=== PATIENT | male | born 1940 | race Caucasian/White ===

== ENCOUNTER 2022-01-28 13:21 | Emergency (ER) | payer MEDICARE, OTHER, SELFPAY ==
--- NOTE | ~2022-01-28 | XR_ITS ---
EXAMINATION: XR hand LT 2V DATE: 01/28/2022 13:44 INDICATION: Deep laceration at the fifth digit post fall TECHNIQUE: Posteroanterior and lateral views of the left hand were obtained. COMPARISON: None. FINDINGS: Bone alignment is normal. No fracture. Polyarticular osteoarthritis, moderate severity at the triscap he, first carpal metacarpal and third metacarpophalangeal joints and mild at the distal radioulnar, w rist and multiple metacarpophalangeal and interphalangeal joints. Tiny radiopaque foreign body in the soft tissues at the palmar/radial base of the second finger. No other radiopaque foreign bodies iden tified. Specifically no radiopaque foreign bodies at the fifth digit. IMPRESSION: 1. Tiny radiopaque foreign body at the palmar/radial side of the base of the left second digit which is remote from the site of the reported laceration. Correlate for history of prior penetrating trauma at this location. 2. 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 No acute osseous abnormality. Reviewed, dictated and finalized at location A. IMPRESSION: 1. Tiny radiopaque foreign body at the palmar/radial side of the base of the le ft second digit which is remote from the site of the reported laceration. Corre late for history of prior penetrating trauma at this location. 2. 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 No acute oss eous abnormality.
--- NOTE | ~2022-01-28 | CT_ITS ---
EXAMINATION: CT brain wo con DATE: 01/28/2022 15:17 INDICATION: Head injury. TECHNIQUE: Computed tomography (CT) of the head was performed without intravenous contrast. The mA wa s adjusted according to patient size. Iterative reconstruction technique was employed. The dose-lengt h product was 605.33 mGy-cm. COMPARISON: None FINDINGS: There are scattered areas of low attenuation in the cerebral white matter. There is no intr acranial hemorrhage, acute infarction, or abnormal intracranial mass lesion. The ventricles are candace l in size. There are likely changes of ocular lens replacement surgeries. There is mild mucosal thick ening in the paranasal sinuses. The mastoid air cells are normal. IMPRESSION: 1. Mild nonspecific cerebral white matter disease, which likely represents chronic small vessel ische christie disease. Reviewed, dictated and finalized at location A. IMPRESSION: 1. 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
[2022-01-28 13:22] VITALS: BP 151/113; PULSE 60; RESP 16; TEMP 37.1; O2SAT 98
--- NOTE | 2022-01-28 14:45 | ED.FALL ---
HPI - Fall General Chief Complaint: Fall Stated Complaint: fall, laceration to hand Time Seen by Provider: 01/28/22 14:20 Source: patient and RN notes reviewed Mode of arrival: ambulatory Limitations: no limitations History of Present Illness HPI Narrative: This is a 81 year old male who presents for evaluation of left hand laceration s/p fall. PAtient states he was on his porch when he tripped over a piece of wood. This caused him to fall forward and he hit his fore head. He denies LOC or headache. His family states he complained about a headache earlier. He states the only thing that hurts his left hand. He has laceration to his left hand. He denies headache, dizziness, chest pain , or lower extremity pain. He denies taking blood thinner. Related Data Home Medications Medication Instructions Recorded Confirmed simvastatin 40 mg tablet 40 mg PO DAILY 06/19/21 Allergies Allergy/AdvReac Type Severity Reaction Status Date / Time No Known Allergies Allergy Verified 01/28/22 13:26 Review of Systems Review of Systems: All systems reviewed & are unremarkable except as noted in HPI and below Constitutional: Constitutional: Denies chills, Denies fatigue and Denies fever(s) Cardiovascular: Cardiovascular: Denies chest pain Respiratory: Respiratory: Denies dyspnea Gastrointestinal: Gastrointestinal: Denies abdominal pain, Denies bloating, Denies nausea and Denies vomiting Musculoskeletal: Musculoskeletal: Denies back pain and Reports arthralgias Neurologic: Denies syncope and Denies headache(s) [facility] Past Medical History Medical History (Updated 01/28/22 @ 16:37 by Abby Scanlon MD) Essential (primary) hypertension Postherpetic trigeminal neuralgia Pure hypercholesterolemia, unspecified Surgical History Surgical History (Updated 06/19/21 @ 15:13 by Salo Barth MD) H/O arthroscopy of knee bilateral History of cataract surgery bilateral Social History Social History (Updated 01/28/22 @ 14:51 by Abby Scanlon MD) Smoking status: Former smoker Exam Const: General: no acute distress and alert Nutritional Appearance: obese Orientation/consciousness: patient oriented x3 HENMT: Head: contusion (abrasion to mid forehead) General nose exam: Normal nares present and no epistaxis Mouth: Yes Normal oral and palatal mucosa present, Yes lip normal and Yes moist mucous membranes Throat: posterior oropharynx normal Other: abrasion to nose bridge Eyes: Pupils: Equal, round and reactive pupils present EOM: EOMs intact bilaterally Neck: Neck: normal visual inspection Chest: Chest palpation & inspection: normal inspection of the chest Resp: Effort & Inspection: normal respiratory effort Auscultation: clear to auscultation bilaterally Cardio: Rate: regular rate Rhythm: regular rhythm Heart sounds: no murmurs GI: GI Palp: Yes Soft to palpation, No Tenderness to palpation present (GI), No Guarding due to palpation present (GI) and No Rigid due to palpation Auscultation: normal bowel sounds Skin: Wounds: wounds noted (left ulnar aspect 5th finger irregular, no exposed bone or tendon) Other: 5 cm wound Neuro: General: patient oriented x3, moves all extremities and CN's II-XI intact bilaterally Course Vital Signs Vital signs: Vital Signs Temperature 98.7 F 01/28/22 13:22 Pulse Rate 60 01/28/22 13:22 Respiratory Rate 16 01/28/22 13:22 Blood Pressure 151/113 H 01/28/22 13:22 Pulse Oximetry 98 01/28/22 13:22 Oxygen Delivery Room Air 01/28/22 13:22 Temperature 98.7 F 01/28/22 13:22 Pulse Rate 65 01/28/22 17:20 Respiratory Rate 18 01/28/22 17:20 Blood Pressure 191/69 H 01/28/22 17:20 Pulse Oximetry 97 01/28/22 17:20 Oxygen Delivery Room Air 01/28/22 13:22 Procedures Laceration Laceration 1: Date: 01/28/22 Time: 16:35 Site: hand (left hand) Size (cm): 5 Description: irregu
[2022-01-28] MEDS: HYDROcodone/acetaminophen (*CRX) 5-325 MG TABLET 1 TAB PO (15:06)
[2022-01-28] MEDS: ONDANSETRON HCL ODT 4 MG TABLET PO (15:06)
[2022-01-28] MEDS: TETANUS,DIPHTHERIA,AC PERTUSSIS ADULT (0.5 ML) BOOSTRIX IM (15:07)
--- NOTE | 2022-01-28 15:16 | PC.NURSE ---
Patient off unit to CT.
[2022-01-28] MEDS: LIDOCAINE HCL 1% LOCAL INJ 20 ML VIAL (15:47)
--- NOTE | 2022-01-28 16:00 | PC.NURSE ---
Dr. Scanlon at bedside to complete laceration repair of left hand.
[2022-01-28 16:19] VITALS: BP 190/75; PULSE 59; RESP 16; O2SAT 99
[2022-01-28 17:20] VITALS: BP 191/69; PULSE 65; RESP 18; O2SAT 97
== END 2022-01-28 17:21 | disposition home or self-care (01) ==
PROVIDERS: Emergency Provider General Practice; PCP Family Medicine Adolescent Medicine
DX: S61.412A Laceration without foreign body of left hand, initial encounter (principal); S09.90XA Unspecified injury of head, initial encounter; Z23 Encounter for immunization; I10 Essential (primary) hypertension; E78.00 Pure hypercholesterolemia, unspecified; Z87.891 Personal history of nicotine dependence; Z98.42 Cataract extraction status, left eye; Z98.41 Cataract extraction status, right eye; M19.042 Primary osteoarthritis, left hand; R90.82 White matter disease, unspecified; W18.09XA Striking against other object with subsequent fall, initial encounter
CPT/HCPCS: 12002; 70450; 73120; 90471; 90715; 99284; A9270

== ENCOUNTER → 2023-10-25 13:58 | Outpatient (CLI) | payer MEDICARE, OTHER, SELFPAY ==
--- NOTE | ~2023-10-25 | XR_ITS ---
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 RESULT: Lines, tubes, and devices: None. Lungs and pleura: Clear. Cardiomediastinal silhouette: Stable. Other: No acute osseous or upper abdominal finding. IMPRESSION: No acute cardiopulmonary process. Reviewed, dictated and finalized at location K.
== END ==
PROVIDERS: PCP Family Medicine Adolescent Medicine; Visit Provider Family Medicine Adolescent Medicine
DX: R60.0 Localized edema (principal)
CPT/HCPCS: 71046

== ENCOUNTER 2023-11-29 07:16 | Inpatient (IN) | payer MEDICARE, OTHER, SELFPAY ==
[2023-11-29] VITALS (24 sets, daily range): BP systolic 118–154; BP diastolic 51–99; PULSE 60–95; RESP 16–23; TEMP 36.6–36.9; O2SAT 97–100; BMI 44.1
--- NOTE | ~2023-11-29 | CT_ITS ---
EXAMINATION: CT chest abdomen pelvis w con DATE: 11/29/2023 08:19 INDICATION: Chest pressure. Shortness of breath. Trauma. TECHNIQUE: Computed tomography (CT) of the chest, abdomen, and pelvis was performed with 100 mL Omnip aque 350 intravenous contrast. Automated exposure control and iterative reconstruction technique were employed. The dose-length product was 1952.01 mGy-cm. COMPARISON: None FINDINGS: CHEST CT: The lungs demonstrate mild atelectasis. Calcified pulmonary nodules and calcified hilar lymph nodes a re consistent with old granulomatous disease. No pleural effusion. The heart size is normal. There ar e coronary artery calcifications. No pericardial effusion. There is mild chronic anterior wedging of multiple vertebral bodies. There is mild thoracic spondylosis. ABDOMEN/PELVIS CT: The liver demonstrates surface nodularity, consistent with cirrhosis. The gallbladder is normal in si ze. Calcifications in the spleen are consistent with old granulomatous disease. The pancreas and adre nal glands are normal. There is cortical thinning of the kidneys. There is a large volume of ascites. Body wall edema is noted. The prostate is mildly enlarged. There is diverticulosis of the colon with out evidence of diverticulitis. There are no dilated loops of bowel. The appendix is normal. Paraesop hageal varices are noted. There is calcified atherosclerosis of the aorta and many of the other arter ies. There is mild periportal and left inguinal lymphadenopathy, likely reactive. There are chronic b ilateral L5 pars defects. There is mild lumbar spondylosis. IMPRESSION: 1. Cirrhosis of the liver with portal venous hypertension. 2. Large volume of ascites. 3. Mild periportal and left inguinal lymphadenopathy, likely reactive. Reviewed, dictated and finalized at location E.
--- NOTE | ~2023-11-29 | US_ITS ---
EXAMINATION: US paracentesis abd w/image DATE: 11/30/2023 10:39 INDICATION: Ascites. TECHNIQUE: The procedure and its risks and benefits were discussed with the patient. Potential risks discussed included bleeding and infection. The skin was prepped and draped in sterile fashion. 1% lid ocaine was used for local anesthesia. Under ultrasound guidance, a 5 Fr catheter with trochar was adv anced into the ascites in the left lower quadrant. Fluid was aspirated into vacuum bottles. The kyle ter was removed, and a dressing was applied. There were no immediate complications. FINDINGS: Ultrasound images demonstrate ascites and the catheter within the fluid. IMPRESSION: 1. Successful ultrasound-guided paracentesis yielding 5000 mL of light yellow fluid. Reviewed, dictated and finalized at location A.
--- NOTE | ~2023-11-29 | XR_ITS ---
EXAMINATION: XR chest 2V DATE: 11/29/2023 07:55 INDICATION: Congestive heart failure. TECHNIQUE: Frontal and lateral views of the chest were obtained. COMPARISON: Chest 2 views 10/25/2023 FINDINGS: There is no pneumonia, pleural effusion, or pneumothorax. The heart size is normal. IMPRESSION: 1. No acute cardiopulmonary disease. Reviewed, dictated and finalized at location E.
--- NOTE | 2023-11-29 07:19 | ECG_ITS ---
Test Date: 2023-11-29 07:28:32 Measurements Intervals [place] Rate: 65 P: 51 WA: 184 QRS: -31 QRSD: 103 T: -10 QT: 402 QTc: 420 Interpretive Statements SINUS RHYTHM WITH MARKED SINUS ARRHYTHMIA MARKED LEFT AXIS DEVIATION [QRS AXIS < -30] LOW QRS VOLTAGE IN PRECORDIAL LEADS [QRS DEFLECTION < 1.0 mV IN CHEST LEADS] NONSPECIFIC T-WAVE ABNORMALITY ABNORMAL ECG No previous ECG available for comparison Electronically Signed On 11-29-2023 15:17:57 CDT by Link Espinoza M.D.
--- NOTE | 2023-11-29 07:34 | ED.CHESTPAIN ---
HPI - Chest Pain General Chief Complaint: Chest Pain Stated Complaint: chest pain Time Seen by Provider: 11/29/23 07:19 History of Present Illness HPI narrative: 83-year-old male with history of type 2 diabetes, high cholesterol, hypertension, morbid obesity, coronary disease with stent present to the emergency department for evaluation of lower extremity swelling and worsening shortness of breath. Patient states symptoms have been ongoing for approximately the last 2 weeks. Patient has no prior history of congestive heart failure and states he is not take a water pill. Patient states he has had some intermittent chest pain with this but denies any current chest pain. Patient states he did have a fall a few days ago did injure his right side. Patient is also reporting that he has been having some dark stool. Patient denies any prior history of GI bleed. Patient has been taking Pepto-Bismol. Related Data Home Medications Medication Instructions Recorded Confirmed aspirin 81 mg tablet,delayed 81 mg PO DAILY 04/30/22 11/29/23 release (Adult Low Dose Aspirin) Allergies Allergy/AdvReac Type Severity Reaction Status Date / Time peanut AdvReac Gastrointestinal Verified 11/29/23 09:55 Upset Review of Systems Review of Systems: All systems reviewed & are unremarkable except as noted in HPI and below PMFSH Past Medical History Medical History (Updated 11/29/23 @ 16:42 by Jareth Banda MD) Atherosclerosis of aorta (12/2010) Coronary artery disease Essential (primary) hypertension Pure hypercholesterolemia, unspecified Type 2 diabetes mellitus without complications Surgical History Surgical History (Updated 11/29/23 @ 13:08 by Niecy Pacheco PA-C) History of arthroscopy of both knees History of bilateral cataract extraction History of cardiac catheterization History of coronary artery stent placement History of total left knee replacement (2010) History of total right knee replacement (2011) Family History Family History (Updated 11/29/23 @ 13:09 by Niecy Pacheco PA-C) Mother Bone cancer Cerebrovascular accident Heart disease Hypertension Sibling Heart disease Social History Social History (Updated 11/29/23 @ 13:10 by Niecy Pacheco PA-C) Social History: Surrogate medical decision maker: Disha Banda, spouse. Code status: Full code. Smoking packs per day: 1 Smoking cigarettes per day: 20.0 Smoking status: Former smoker Tobacco type: cigarettes Smoking end date: 01/01/85 Alcohol intake: never Substance use: never Substance use type: does not use Do You Feel Safe in your Home?: Yes Lack of Transportation: No Lack of Food: Never True Current Housing: I Have Housing Concerned About Future Housing: No Difficulty Paying Gas/Electric Bills: No Difficulty Paying for Meds: No Currently Unemployed: No Education: High School Diploma/GED Difficulty w/ Childcare or Family Care: No Spiritual care concerns: No Exam Narrative: APPEARANCE: Dyspneic appearing HEAD: normocephalic, atraumatic. EYES: PERRLA/EOMI, conjunctivae clear. NOSE: Normal no drainage EARS:TMS clear with good light reflex. THROAT: Pharynx clear, no exudate. NECK: Supple. No adenopathy, no masses. RESPIRATORY: Airway patent, respirations nonlabored. Clear to auscultation bilaterally, no rales, rhonchi, wheezing. CARDIOVASCULAR: Regular rate and rhythm without murmurs rubs or gallops. ABDOMINAL: Soft, nontender, nondistended, normal bowel sounds MUSCULOSKELETAL: Moves all extremities. Lower extremity edema, +3 pitting Rectal exam: Hemoccult negative on digital rectal exam NEURO: Alert. Cranial nerves II through XII intact. Good gait. Good coordination SKIN: Warm, dry. Normal Color Course Vital Signs Vital signs: Vital Signs Temperature 98.1 F 11/29/23 07:19 Pulse Rate 75 11/29/23 07:19 Respiratory Rate 18 11/29/23 07:19 Blood Pressure 118/99 H
[2023-11-29 07:40] LABS: Basophils Absolute Auto 0.1 K/mm3 (0.0-0.1); Basophils Percent Auto 0.8 % (0.2-1.2); Eosinophils Absolute Auto 0.1 K/mm3 (0-0.3); Eosinophils Percent Auto 2.3 % (0-4.4); Hematocrit 38.3 % (42.0-52.0); Hemoglobin 12.3 g/dL (14.0-18.0); Immature Granulocyte Absolute 0.03 K/mm3 (0.00-0.031); Immature Granulocyte Percent A 0.5 % (0-0.5); Lymphocytes Absolute Auto 1.96 K/mm3 (0.9-3.2); Lymphocytes Percent Auto 32.6 % (18.3-44.2); Mean Corpuscular HGB Conc 32.1 g/dl (32-36); Mean Corpuscular Hemoglobin 33.3 pg (26-34); Mean Corpuscular Volume 103.8 fl (80-100); Mean Platelet Volume 9.8 fl (7.4-10.4); Monocytes Absolute Auto 0.6 K/mm3 (0.1-0.6); Monocytes Percent Auto 9.5 % (2.6-8.5); Neutrophils Absolute Auto 3.3 K/mm3 (1.3-6.7); Neutrophils Percent Auto 54.3 % (45.5-73.1); Platelet Count Result 172 k/mm3 (150-375); Red Blood Count 3.69 M/mm3 (4.6-6.20)
[2023-11-29 07:49] LABS: Alanine Aminotransferase 30 U/L (6-50); Albumin Level 2.7 g/dL (3.5-5.1); Alkaline Phosphatase 123 U/L (38-126); Anion Gap 4 mmol/L (4-12); Aspartate Amino Transferase 37 U/L (17-59); Bilirubin,Total 0.8 mg/dL (0.2-1.3); Blood Urea Nitrogen 14 mg/dL (9-20); Calcium 7.5 mg/dL (8.4-10.2); Carbon Dioxide 23 mmol/L (22-30); Chloride 109 mmol/L (98-107); Estimated CRCL calculation 78 ml/min; Estimated Glomerular Filt Rate > 60; Glucose 164 mg/dL (65-110); INR 1.1; Potassium 3.7 mmol/L (3.4-5.0); Prothrombin Time 14.4 Seconds (11.1-14.7); Sodium 136 mmol/L (137-145)
[2023-11-29 07:50] LABS: Partial Thromboplastin Time 28.4 Seconds (22.3-36.8)
[2023-11-29 08:01] LABS: NT Pro B Type Natriuretic Pept 1080 pg/mL (19.9-100); Troponin I 0.027 ng/mL (0.000-0.034)
[2023-11-29] MEDS: FUROSEMIDE INJ 40 MG/4 ML VIAL IV PUSH ×2 (08:24→16:46)
[2023-11-29 08:48] LABS: Influenza A QL RT-PCR Negative (Negative); Influenza B QL RT-PCR Negative (Negative); RSV RNA, RT-PCR Negative (Negative); SARS-CoV-2 RNA PCR Negative (Negative)
--- NOTE | 2023-11-29 09:25 | ADMGEN ---
This patient, Everardo Banda, was admitted to Medical Room 250-01. Patient/family oriented to hospital policies and general routines including ID bracelet, bed and alarms, visiting hours, pain management, procedures, bathroom and other care routines, personal items, smoking policy, room service/diet, and visiting hours. Information on how to activate the Rapid Response Team has been discussed. Patient/Family are encouraged to report perceived risks to care and to ask questions if they do not understand what they are told or what they should do.
--- NOTE | 2023-11-29 13:04 | ECHO_ITS ---
Patient Info Name: Everardo Banda Age: 83 years : 1940 Gender: Male Ht: 69 in Wt: 299 lbs BSA: 2.64 m2 HR: 67 bpm BP: 154 / 65 mmHg Heart Rhythm: Sinus Rhythm Technical Quality: Fair Exam Date: 11/29/2023 3:56 PM Exam Location: Echo Lab Patient Status: Outpatient Admit Date: 11/29/2023 Staff Ordering Physician: Niecy Pacheco PA-C Packer: Tavares Olsen RDCS Attending Provider: Sandra Braswell MD Referring Physician: Tara MYLES; Exam Type: CA echo doppler color flow Study Info Indications J81.0 - Acute pulmonary edema I10 - Essential (primary) hypertension I25.110 - Atherosclerotic heart disease of [place] coronary artery with unstable angina pectoris Complete two-dimensional, color flow and Doppler transthoracic echocardiogram is performed. Summary 1. Left ventricular chamber dimension is normal. 2. Left ventricular systolic function is normal, estimated at 50-55%. 3. There is mildly increased left ventricular wall thickness. 4. The left ventricular diastolic function is grade I diastolic dysfunction. 5. Right ventricular systolic function is normal. 6. There is mild tricuspid valve regurgitation. 7. Normal inferior vena cava with >50% collapse upon inspiration consistent with normal right atrial pressure, 3 mmHg. Left Ventricle Left ventricular chamber dimension is normal. Left ventricular systolic function is normal, estimated at 50-55%. There is mildly increased left ventricular wall thickness. The left ventricular diastolic function is grade I diastolic dysfunction. Right Ventricle Right ventricular chamber dimension is normal. Right ventricular systolic function is normal. Left Atria Left atrial chamber dimension is normal. Right Atria Right atrial chamber dimension is normal. Atrial Septum Intact interatrial septum visualized by color flow imaging. Aortic Valve The aortic valve is probable trileaflet. There is no aortic valve stenosis. There is no aortic valve regurgitation. There is moderate aortic valve calcification. Pulmonic Valve The pulmonic valve is not well visualized. There is trace pulmonic regurgitation. Mitral Valve There is trace mitral valve regurgitation. The mitral valve annulus is moderately calcified. Tricuspid Valve There is mild tricuspid valve regurgitation. Pericardium/Pleural The pericardium appears epicardial fat pad. There is no pericardial effusion. Inferior Vena Cava Normal inferior vena cava with >50% collapse upon inspiration consistent with normal right atrial pressure, 3 mmHg. Aorta The aortic root size at the sinus of Valsalva is normal. Left Ventricular Outflow Tract Name Value Normal LVOT 2D LVOT Diameter 2.0 cm LVOT Doppler LVOT Peak Gradient 4 mmHg LVOT Mean Gradient 2 mmHg LVOT VTI 21 cm LVOT VTI/AV VTI Ratio 0.6 LVOT Stroke Volume 68 ml LVOT CO 3.6 l/min LVOT CI 1.4 l/min/m2 Pulmonic Valve Name
--- NOTE | 2023-11-29 13:05 | PM.IMHP ---
H&P: HPI History of Present Illness Date/Time: 11/29/23 13:05 Chief Complaint: Shortness of breath and swelling. Narrative: This is a very pleasant 83-year-old male with coronary artery disease and history of stents in 1995, hypertension, hyperlipidemia, and type 2 diabetes mellitus who presented to the emergency department for evaluation of swelling and shortness of breath. The patient provides the following history. Over the course of the last month he has developed rapid swelling in his legs and abdomen. Several days ago he had a fall as he got tripped up on his legs, in part due to the swelling, and he landed on his right side. He has had pain in the right rib since that time, worse with movement and inspiration. Family members encouraged him to come in today for evaluation as he was complaining of intermittent tightness in the low chest area. He does have some shortness of breath with exertion. He has not had exertional chest pain or pleuritic pain. He denies syncope and near syncope. Appetite has been okay. No nausea, vomiting, diarrhea, or constipation. Stool has been ?black as coal? but he has been taking Pepto-Bismol. Family members suspect he has sleep apnea as he snores heavily and occasionally sounds as though he stops breathing. The patient has known history of cardiac, renal, or liver disease. Of note he has had 2 episodes of angioedema around the face, lips, and neck in the past month or so. He has been on benazepril for many years and has never had similar episodes. In the ED: He was afebrile on arrival with stable vital signs. Labs were significant for a he hemoglobin of 12.3, MCV 103.8, INR 1.1, glucose 164, troponin 0.027, proBNP 1080, total protein 6.0, albumin 2.7. 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 No acute cardiopulmonary disease noted on chest x-ray. He received furosemide 40 mg IV x1 he is being admitted in this setting for further treatment and evaluation. With further questioning, he has known history of liver disease. Review of Systems Review of Systems: 12 systems were reviewed and are negative except for as per HPI. [facility] Past Medical History Medical History Atherosclerosis of aorta (12/2010) Coronary artery disease Essential (primary) hypertension Pure hypercholesterolemia, unspecified Type 2 diabetes mellitus without complications Surgical History Surgical History History of arthroscopy of both knees History of bilateral cataract extraction History of cardiac catheterization History of coronary artery stent placement History of total left knee replacement (2010) History of total right knee replacement (2011) Family History Family History Mother Bone cancer Cerebrovascular accident Heart disease Hypertension Sibling Heart disease Social History Social History Social History: Surrogate medical decision maker: Disha Banda, spouse. Code status: Full code. Smoking packs per day: 1 Smoking cigarettes per day: 20.0 Smoking status: Former smoker Tobacco type: cigarettes Smoking end date: 06/14/84 Alcohol intake: never Substance use: never Substance use type: does not use Do You Feel Safe in your Home?: Yes Lack of Transportation: No Lack of Food: Never True Current Housing: I Have Housing Concerned About Future Housing: No Difficulty Paying Gas/Electric Bills: No Difficulty Paying for Meds: No Currently Unemployed: No Education: High School Diploma/GED Difficulty w/ Childcare or Family Care: No Spiritual care concerns: No Meds Home Medications and Allergies Home Medications Medication Instructions Rec
[2023-11-29 13:37] LABS: Magnesium 1.7 mg/dL (1.6-2.3)
[2023-11-29 13:45] LABS: Immature Reticulocyte Fraction 9.9 % (3.0-15.9); Reticulocyte Hemoglobin Conten 36.5 pg (28.2-36.6); Reticulocyte Percent 1.47 % (0.7-4.3); Reticulocytes Absolute 0.06 10^6/uL (0.02-0.10)
[2023-11-29 14:06] LABS: Troponin I 0.031 ng/mL (0.000-0.034)
[2023-11-29 14:14] LABS: Iron 83 ug/dL (49-181)
[2023-11-29 14:26] LABS: Percent Iron Saturation 41 % (20-50)
[2023-11-29 14:44] LABS: Folic Acid 7.1 ng/mL (2.76->20)
[2023-11-29 15:27] LABS: Free T4 Free Thyroxine Reflex 1.07 ng/dL (0.78-2.19)
[2023-11-29 15:33] LABS: Hepatitis B Surface Antigen Negative (Negative)
[2023-11-29 15:39] LABS: HAV RESULT Negative (Negative); Hepatitis B Core IgM Result Negative (Negative)
[2023-11-29 15:50] LABS: Hepatitis C Virus Antibody Negative (Negative)
[2023-11-29 15:57] LABS: Hemoglobin A1C 5.3 % (<5.7)
[2023-11-29] MEDS: ACETAMINOPHEN 325 MG TABLET 650 MG PO (16:46)
[2023-11-29] MEDS: METOPROLOL TARTRATE 50 MG TAB PO (16:48)
[2023-11-29] MEDS: POTASSIUM CHLORIDE 20 MEQ ER TABLET PO (16:53)
[2023-11-29 16:56] LABS: Glucose Point of Care 93 mg/dl (65-105)
--- NOTE | 2023-11-29 17:30 | WPDGICN ---
Assessment and Plan Assessment and plan (1) Cirrhosis of liver with ascites: Code(s): K74.60 - Unspecified cirrhosis of liver; R18.8 - Other ascites Status: Acute Assessment and Plan: new diagnosis with significant ascites will get paracentesis, also start diuretics, 2g na diet will complete work up, based on risk factors ? MASH at some point will need EGD to assess for portal htn (2) CHF (congestive heart failure): Code(s): I50.9 - Heart failure, unspecified Status: Acute Assessment and Plan: on treatment. echo pending (3) Type 2 diabetes mellitus without complications: Code(s): E11.9 - Type 2 diabetes mellitus without complications Status: Acute (4) Coronary artery disease: Code(s): I25.10 - Atherosclerotic heart disease of [place] coronary artery without angina pectoris Status: Acute (5) Edema: Code(s): R60.9 - Edema, unspecified Status: Acute (6) Morbid (severe) obesity due to excess calories: Code(s): E66.01 - Morbid (severe) obesity due to excess calories Status: Acute GI Consult Note Consult date/time: 11/29/23 17:30 Reason for consult: cirrhosis, ascites HPI: Everardo Banda is a 83 year old male with history of coronary artery disease and history of stents in 1995, hypertension, hyperlipidemia, and type 2 diabetes mellitus, obesity with BMI 44 who presented to the emergency department for evaluation of chest pressure and shortness of breath. Patient states he has had some intermittent chest pain with this but denies any current chest pain, also noted more leg edema and increase of abdominal girth, also he had a fall a few days ago did injure his right side. Denies history of liver disease, no alcohol abuse. ER evaluation hemoglobin of 12.3, MCV 103.8, INR 1.1, glucose 164, troponin 0.027, proBNP 1080, total protein 6.0, albumin 2.7. 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 He received iv lasix, now getting 2d-echo. Never had paracentesis. Review of Systems Constitutional: Constitutional: Denies chills Eyes: Eyes: Denies blurry vision ENT: Reports Normal hearing present Cardiovascular: Cardiovascular: Reports leg edema Respiratory: Respiratory: Reports dyspnea on exertion Gastrointestinal: Gastrointestinal: Denies nausea Genitourinary: Genitourinary: Reports flank pain Musculoskeletal: Musculoskeletal: Denies neck pain Integumentary/Breasts: Skin/Breast: Denies rash Neurologic: Denies confusion Psychiatric: Psychiatric: Denies behavioral changes [facility] Past Medical History Medical History (Updated 11/29/23 @ 16:42 by Jareth Banda MD) Atherosclerosis of aorta (12/2010) Coronary artery disease Essential (primary) hypertension Pure hypercholesterolemia, unspecified Type 2 diabetes mellitus without complications Surgical History Surgical History (Updated 11/29/23 @ 13:08 by Niecy Pacheco PA-C) History of arthroscopy of both knees History of bilateral cataract extraction History of cardiac catheterization History of coronary artery stent placement History of total left knee replacement (2010) History of total right knee replacement (2011) Family History Family History (Updated 11/29/23 @ 13:09 by Niecy Pacheco PA-C) Mother Bone cancer Cerebrovascular accident Heart disease Hypertension Sibling Heart disease Social History Social History (Updated 11/29/23 @ 13:10 by Niecy Pacheco PA-C) Social History: Surrogate medical decision maker: Disha Banda, spouse. Code status: Full code. Smoking packs per day: 1 Smoking cigarettes per day: 20.0 Smoking status: Former smoker Tobacco type: cigarettes Smoking end date: 06/14/84 Alcohol intake: never Substance use: never Substance use type: does not use Do You Feel Safe in your Home?:
[2023-11-29] MEDS: HYDROcodone/acetaminophen (*CRX) 5-325 MG TABLET 1 TAB PO (20:40)
[2023-11-29 21:13] LABS: Glucose Point of Care 148 mg/dl (65-105)
[2023-11-30] VITALS (13 sets, daily range): BP systolic 107–153; BP diastolic 49–60; PULSE 59–89; RESP 16–20; TEMP 36.4–36.8; O2SAT 95–100
[2023-11-30 06:02] LABS: Hemoglobin 11.6 g/dL (14.0-18.0); Mean Corpuscular HGB Conc 32.2 g/dl (32-36); Mean Corpuscular Volume 102.3 fl (80-100); Mean Platelet Volume 9.9 fl (7.4-10.4); Platelet Count Result 186 k/mm3 (150-375); Red Blood Count 3.52 M/mm3 (4.6-6.20); Red Cell Distribution Width 13.7 % (11.5-14.5); White Blood Count 5.9 K/mm3 (4.5-10.0)
[2023-11-30 06:23] LABS: Alanine Aminotransferase 28 U/L (6-50); Albumin Level 2.6 g/dL (3.5-5.1); Alkaline Phosphatase 115 U/L (38-126); Anion Gap 3 mmol/L (4-12); Aspartate Amino Transferase 34 U/L (17-59); Bilirubin,Total 0.9 mg/dL (0.2-1.3); Blood Urea Nitrogen 12 mg/dL (9-20); Calcium 7.5 mg/dL (8.4-10.2); Carbon Dioxide 26 mmol/L (22-30); Chloride 109 mmol/L (98-107); Estimated CRCL calculation 76 ml/min; Estimated Glomerular Filt Rate > 60; Glucose 77 mg/dL (65-110); Potassium 3.5 mmol/L (3.4-5.0); Sodium 138 mmol/L (137-145)
[2023-11-30 06:59] LABS: Total Triiodothyronine (T3) 1.08 NG/ML (0.97-1.69)
[2023-11-30 07:18] LABS: Hepatitis B Surface Antigen Negative (Negative)
[2023-11-30 07:24] LABS: HAV RESULT Negative (Negative); Hepatitis B Core IgM Result Negative (Negative)
[2023-11-30 07:35] LABS: Hepatitis C Virus Antibody Negative (Negative)
[2023-11-30 08:05] LABS: Glucose Point of Care 82 mg/dl (65-105)
[2023-11-30 11:01] LABS: Appearance Peritoneal Fluid Hazy (Clear); Color Peritoneal Fluid Yellow (Colorless); Source Peritoneal Fluid Peritoneal Fluid
[2023-11-30] MEDS: ASPIRIN 81 MG CHEWABLE TABLET PO (11:15)
[2023-11-30] MEDS: METOPROLOL TARTRATE 50 MG TAB PO ×2 (11:15→17:55)
[2023-11-30] MEDS: FUROSEMIDE INJ 40 MG/4 ML VIAL IV PUSH ×2 (11:16→17:56)
[2023-11-30] MEDS: SPIRONOLACTONE 50 MG TABLET 100 MG PO (11:16)
[2023-11-30] MEDS: MONTELUKAST SODIUM 10 MG TABLET PO (11:16)
[2023-11-30] MEDS: SIMVASTATIN 20 MG TABLET 40 MG PO (11:16)
[2023-11-30 11:18] LABS: Lymphocytes Peritoneal Fluid 86 %; Nucleated Cells Peritoneal Flu 178 /uL (0-500)
[2023-11-30 11:21] LABS: RBC Peritoneal Fluid < 2000 /uL (0-10000)
[2023-11-30 11:22] LABS: Mesothelial Cells Peritoneal Fluid 1 %; Monocytes Peritoneal Fluid 13 %
[2023-11-30 12:18] LABS: Glucose Point of Care 87 mg/dl (65-105)
--- NOTE | 2023-11-30 14:06 | P.PNIM_ITS ---
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 (2) Anasarca: Code(s): R60.1 - Generalized edema Status: Acute Assessment and Plan: * Due to cirrhosis of liver (3) Essential (primary) hypertension: Code(s): I10 - Essential (primary) hypertension Status: Acute Assessment and Plan: * blood pressure ranging 127/53 to 153/60 * continue lisinopril and metoprolol (4) Pure hypercholesterolemia, unspecified: Code(s): E78.00 - Pure hypercholesterolemia, unspecified Status: Acute Assessment and Plan: * continue aspirin and simvastatin (5) Type 2 diabetes mellitus without complications: Code(s): E11.9 - Type 2 diabetes mellitus without complications Status: Acute Assessment and Plan: * blood sugars ranging 82-140 * hemoglobin A1c 5.3 on 11/29/2023 * Accu-Cheks AC and HS * switched patient to low-dose dose sliding scale insulin ordered * diabetic diet * hypoglycemic protocol in place Time Spent With Patient Time with patient: Greater than 35 minutes Subjective Date/time seen: 11/30/23 14:06 Interval history: This is an 83-year-old male who presented to the hospital on 11/28 with co mplaints of shortness of breath swelling. Workup in hospital included chest x- ray which was negative. Chest/abdomen/pelvis CT shows cirrhosis of the liver with portal any venous hypertension, large volume of ascites, mild periportal and left inguinal lymphadenopathy, likely reactive. Patient had paracentesis today with 5 L fluid removal. Initial labs show a normal white blood cell count of 6.0, hemoglobin 12.3, INR 1.1, sodium 136, BNP 1080, albumin 2.7, vitamin B12 190. hepatitis panel was negative. Respiratory panel was negative for influenza a, B, RSV, COVID. Peritoneal fluid was sent for culture and g stain. echo was also obtained and shown LV systolic function as normal with an estimated EF of 50-55%, grade 1 diastolic dysfunction. GI was consulted and continues workup. On examination today patient is alert and oriented x3, lying in the bed. patient denies any fever, chills, nausea, vomiting, diarrhea, abdominal pain, chest pain, or shortness of breath. patient endorses right rib pain from a fall and edema to lower extremities. Labs today show a Hgb 11.6, otherwise unremarkable. We will continue diuretics. Review of Systems Review of Systems: All systems reviewed & are unremarkable except as noted in HPI and below Constitutional: Constitutional: Reports as per HPI and Reports no additional constitutional complaints Eyes: Eyes: Reports as per HPI and Reports no ad
--- NOTE | 2023-11-30 14:06 | PM.IMPN ---
Progress Note: A&P Assessment and Plan (1) Cirrhosis of liver with ascites: Code(s): K74.60 - Unspecified cirrhosis of liver; R18.8 - Other ascites Status: Acute Assessment and Plan: CT of the abdomen/ pelvis/chest revealed cirrhosis of the liver with portal venous hypertension, large volume of ascites, mild periportal and left inguinal lymphadenopathy likely reactive patient has paracentesis ultrasound with 5 L fluid removal ascites fluid sent for culture and lab studies GI consulted and following with workup for [facility] patient will need EGD at some point for his portal vein hypertension continue diuretics per GI recommendation continue low-sodium diet echo showing normal LV systolic function with an estimated EF of 50-55%, grade 1 diastolic dysfunction total bili and liver enzymes within normal limits, albumin 2.6 hepatitis panel was negative patient has 2-3+ pitting edema to bilateral lower extremities, anasarca present, will need continued diuresis. (2) Anasarca: Code(s): R60.1 - Generalized edema Status: Acute Assessment and Plan: Due to cirrhosis of liver (3) Essential (primary) hypertension: Code(s): I10 - Essential (primary) hypertension Status: Acute Assessment and Plan: blood pressure ranging 127/53 to 153/60 continue lisinopril and metoprolol (4) Pure hypercholesterolemia, unspecified: Code(s): E78.00 - Pure hypercholesterolemia, unspecified Status: Acute Assessment and Plan: continue aspirin and simvastatin (5) Type 2 diabetes mellitus without complications: Code(s): E11.9 - Type 2 diabetes mellitus without complications Status: Acute Assessment and Plan: blood sugars ranging 82-140 hemoglobin A1c 5.3 on 11/29/2023 Accu-Cheks AC and HS switched patient to low-dose dose sliding scale insulin ordered diabetic diet hypoglycemic protocol in place Time Spent With Patient Time with patient: Greater than 35 minutes Subjective Date/time seen: 11/30/23 14:06 Interval history: This is an 83-year-old male who presented to the hospital on 11/28 with complaints of shortness of breath swelling. Workup in hospital included chest x-ray which was negative. Chest/abdomen/pelvis CT shows cirrhosis of the liver with portal any venous hypertension, large volume of ascites, mild periportal and left inguinal lymphadenopathy, likely reactive. Patient had paracentesis today with 5 L fluid removal. Initial labs show a normal white blood cell count of 6.0, hemoglobin 12.3, INR 1.1, sodium 136, BNP 1080, albumin 2.7, vitamin B12 190. hepatitis panel was negative. Respiratory panel was negative for influenza a, B, RSV, COVID. Peritoneal fluid was sent for culture and g stain. echo was also obtained and shown LV systolic function as normal with an estimated EF of 50-55%, grade 1 diastolic dysfunction. GI was consulted and continues workup. On examination today patient is alert and oriented x3, lying in the bed. patient denies any fever, chills, nausea, vomiting, diarrhea, abdominal pain, chest pain, or shortness of breath. patient endorses right rib pain from a fall and edema to lower extremities. Labs today show a Hgb 11.6, otherwise unremarkable. We will continue diuretics. Review of Systems Review of Systems: All systems reviewed & are unremarkable except as noted in HPI and below Constitutional: Constitutional: Reports as per HPI and Reports no additional constitutional complaints Eyes: Eyes: Reports as per HPI and Reports no additional eye complaints ENT: Reports system reviewed and no additional complaints, except as documented and Reports as per HPI Cardiovascular: Cardiovascular: Reports as per HPI and Reports no additional cardiovascular complaints Respiratory: Respiratory: Reports as per HPI and Reports no additional respiratory complaints Gastrointestinal: Gastrointestinal: Reports as
[2023-11-30 16:46] LABS: Glucose Point of Care 100 mg/dl (65-105)
--- NOTE | 2023-11-30 17:33 | WPDGIPROGNO ---
Progress Note: A&P Assessment and Plan (1) Cirrhosis of liver with ascites: Code(s): K74.60 - Unspecified cirrhosis of liver; R18.8 - Other ascites Status: Acute Assessment and Plan: work up in progress ? MASH hepatitis negative better after 5 L fluid removed no SBP 2g na diet, nutrition support and will need follow-up office after discharge (2) Anasarca: Code(s): R60.1 - Generalized edema Status: Acute (3) CHF (congestive heart failure): Code(s): I50.9 - Heart failure, unspecified Status: Acute (4) Edema: Code(s): R60.9 - Edema, unspecified Status: Acute (5) Type 2 diabetes mellitus without complications: Code(s): E11.9 - Type 2 diabetes mellitus without complications Status: Acute (6) Morbid (severe) obesity due to excess calories: Code(s): E66.01 - Morbid (severe) obesity due to excess calories Status: Acute Subjective Date/time seen: 11/30/23 17:33 Interval history: feeling better after 5L ascitic fluid removed Review of Systems Review of Systems: All systems reviewed & are unremarkable except as noted in HPI and below Exam Const: General: comfortable Other: obese HENMT: Face/Nose/Sinus: Normal nares present Eyes: General: appearance normal, both eyes and all related structures Neck: Neck: supple Resp: Effort & Inspection: normal respiratory effort Cardio: Rate: regular rate GI: Inspection: distended GI Palp: Yes Soft to palpation Auscultation: normal bowel sounds Other: + fluid wave, tender towards right side (h/o fall) Skin: General skin exam: normal color Neuro: Speech: normal speech Motor exam (neuro): 5/5 motor strength present throughout Extrem: General: edema (2 + edema both legs) Objective Data Vital Signs Vital Signs: Vital Signs - 24 hr 11/29/23 19:42 11/29/23 20:00 11/29/23 20:00 Temperature 97.8 F Pulse Rate 63 63 62 Respiratory Rate 20 20 Blood Pressure 146/51 H Pulse Oximetry 97 97 Oxygen Delivery Room Air 11/30/23 00:00 11/30/23 02:45 11/30/23 04:00 Temperature Pulse Rate 65 89 Respiratory Rate Blood Pressure Pulse Oximetry 97 Oxygen Delivery 11/30/23 04:41 11/30/23 11:15 11/30/23 11:17 Temperature 97.6 F Pulse Rate 81 65 65 Respiratory Rate 20 16 Blood Pressure 136/52 L 153/60 H Pulse Oximetry 95 100 Oxygen Delivery 11/30/23 08:00 11/30/23 12:00 11/30/23 11:15 Temperature Pulse Rate 63 84 Respiratory Rate Blood Pressure Pulse Oximetry Oxygen Delivery Room Air 11/30/23 14:00 11/30/23 16:00 Temperature 98.2 F Pulse Rate 62 63 Respiratory Rate 16 Blood Pressure 107/54 L Pulse Oximetry 100 Oxygen Delivery Intake/Output Intake/Output: Intake & Output 11/27/23 11/28/23 11/29/23 11/30/23 23:59 23:59 23:59 23:59 Intake Total 630 530 Output Total 800 6100 Balance -170 -8029 Meds/Results Medications: Active Medications Generic Name Dose Route Start Last Admin Trade Name Freq PRN Reason Stop Dose Admin Aspirin 81 mg 11/30/23 08:00 11/30/23 11:15 Aspirin 81 Mg Chewable Tablet PO 81 mg DAILY@0800 MITZY Administration Dextrose 12.5 gm 11/29/23 13:13 Dextrose 50% 25 Gm/50 Ml Syringe IV PUSH PRN PRN Hypoglycemia Protocol Furosemide 40 mg 11/29/23 17:00 11/30/23 11:16 Furosemide Inj 40 Mg/4 Ml Vial IV PUSH 40 mg BID MITZY Administration Glucagon 1 mg 11/29/23 13:13 Glucagon For Inj 1 Mg Vial IM PRN PRN Hypoglycemia Protocol Glucose 15 gm 11/29/23 13:13 Glucose Oral Gel 15 Gm Of Glucse In 37.5 Gm Tube PO PRN PRN Hypoglycemia Protocol Dextrose 1,000 mls @ 100 mls/hr 11/29/23 13:13 Dextrose 5% 1,000 Ml IVPB PRN PRN Hypoglycemia Protocol Insulin Aspart 2 - 5 units 11/30/23 17:00 Insulin Aspart (*Bkc) 100 Units/Ml SUB-Q [facility] Protocol Insu
[2023-11-30 20:36] LABS: Glucose Point of Care 110 mg/dl (65-105)
[2023-12-01] VITALS (11 sets, daily range): BP systolic 133–144; BP diastolic 50–78; PULSE 58–100; RESP 18–20; TEMP 35.9–36.6; O2SAT 96–98
[2023-12-01 08:21] LABS: Glucose Point of Care 90 mg/dl (65-105)
[2023-12-01] MEDS: MONTELUKAST SODIUM 10 MG TABLET PO (09:06)
[2023-12-01] MEDS: SPIRONOLACTONE 50 MG TABLET 100 MG PO (09:06)
[2023-12-01] MEDS: ASPIRIN 81 MG CHEWABLE TABLET PO (09:06)
[2023-12-01] MEDS: METOPROLOL TARTRATE 50 MG TAB PO ×2 (09:06→17:25)
[2023-12-01] MEDS: SIMVASTATIN 20 MG TABLET 40 MG PO (09:06)
[2023-12-01] MEDS: FUROSEMIDE INJ 40 MG/4 ML VIAL IV PUSH ×2 (09:06→17:21)
[2023-12-01 10:39] LABS: Ceruloplasmin 31 mg/dL (14-30)
[2023-12-01 12:05] LABS: Glucose Point of Care 145 mg/dl (65-105)
--- NOTE | 2023-12-01 14:08 | P.PNIM_ITS ---
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 (2) Anasarca: Code(s): R60.1 - Generalized edema Status: Acute Assessment and Plan: * Due to cirrhosis of liver (3) Essential (primary) hypertension: Code(s): I10 - Essential (primary) hypertension Status: Acute Assessment and Plan: * blood pressure ranging 127/53 to 153/60 * continue lisinopril and metoprolol Blood pressure Reviewed on 11/30, stable, no intervention needed (4) Pure hypercholesterolemia, unspecified: Code(s): E78.00 - Pure hypercholesterolemia, unspecified Status: Acute Assessment and Plan: * continue aspirin and simvastatin (5) Type 2 diabetes mellitus without complications: Code(s): E11.9 - Type 2 diabetes mellitus without complications Status: Acute Assessment and Plan: * blood sugars ranging 82-140 * hemoglobin A1c 5.3 on 11/29/2023 * Accu-Cheks AC and HS * switched patient to low-dose dose sliding scale insulin ordered * diabetic diet * hypoglycemic protocol in place Blood sugars reviewed on 11/30, stable, no further intervention at this time Time Spent With Patient Time with patient: Greater than 35 minutes Subjective Date/time seen: 12/01/23 14:08 Interval history: Patient with new onset cirrhosis anasarca status post paracentesis feeling better. He denies difficulty breathing or chest pain. He still has quite significant lower extremity edema up into the abdomen. Review of Systems Review of Systems: All systems reviewed & are unremarkable except as noted in HPI and below Exam Narrative: General: In no acute distress, well nourished Head: atraumatic Eyes: EOMI, PERRLA, sclera clear ENT: moist mucous membranes, nasal passages clear Neck: supple, no JVD, no adenopathy, trachea midline Cardiac: Borderline bradycardic, sinus rhythm rate 50 on telemetry per my interpretation. Normal S1 and S2. No murmur, gallops or friction rubs, vy pheral pulses intact. Respiratory: Lungs clear to auscultation, no adventitious lung sounds, currently on room air Gastrointestinal: Ascites noted, soft and nontender Extremities: moves all extremities well, 2-3+ pitting edema, anasarca Skin: clean, dry, intact. No wounds or lesions. Neuro: Alert and oriented x4, cranial nerves intact, no neuro deficits. Psych: normal mood, normal affect, interactive Objective Data Vital Signs Vital Signs: Vital Si
--- NOTE | 2023-12-01 14:08 | PM.IMPN ---
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 (2) Anasarca: Code(s): R60.1 - Generalized edema Status: Acute Assessment and Plan: Due to cirrhosis of liver (3) Essential (primary) hypertension: Code(s): I10 - Essential (primary) hypertension Status: Acute Assessment and Plan: blood pressure ranging 127/53 to 153/60 continue lisinopril and metoprolol Blood pressure Reviewed on 11/30, stable, no intervention needed (4) Pure hypercholesterolemia, unspecified: Code(s): E78.00 - Pure hypercholesterolemia, unspecified Status: Acute Assessment and Plan: continue aspirin and simvastatin (5) Type 2 diabetes mellitus without complications: Code(s): E11.9 - Type 2 diabetes mellitus without complications Status: Acute Assessment and Plan: blood sugars ranging 82-140 hemoglobin A1c 5.3 on 11/29/2023 Accu-Cheks AC and HS switched patient to low-dose dose sliding scale insulin ordered diabetic diet hypoglycemic protocol in place Blood sugars reviewed on 11/30, stable, no further intervention at this time Time Spent With Patient Time with patient: Greater than 35 minutes Subjective Date/time seen: 12/01/23 14:08 Interval history: Patient with new onset cirrhosis anasarca status post paracentesis feeling better. He denies difficulty breathing or chest pain. He still has quite significant lower extremity edema up into the abdomen. Review of Systems Review of Systems: All systems reviewed & are unremarkable except as noted in HPI and below Exam Narrative: General: In no acute distress, well nourished Head: atraumatic Eyes: EOMI, PERRLA, sclera clear ENT: moist mucous membranes, nasal passages clear Neck: supple, no JVD, no adenopathy, trachea midline Cardiac: Borderline bradycardic, sinus rhythm rate 50 on telemetry per my interpretation. Normal S1 and S2. No murmur, gallops or friction rubs, peripheral pulses intact. Respiratory: Lungs clear to auscultation, no adventitious lung sounds, currently on room air Gastrointestinal: Ascites noted, soft and nontender Extremities: moves all extremities well, 2-3+ pitting edema, anasarca Skin: clean, dry, intact. No wounds or lesions. Neuro: Alert and oriented x4, cranial nerves intact, no neuro deficits. Psych: normal mood, normal affect, interactive Objective Data Vital Signs Vital Signs: Vital Signs - 24 hr 11/30/23 16:00 11/30/23 17:55 11/30/23 20:07 Temperature 36.4 C Pulse Rate 63 65 87 Respiratory Rate 20 Blood Pressure 149/49 H Pulse Oximetry 99 Oxygen Delivery Fraction of Inspired Oxygen 11/30/23 20:00 12/01/23 00:00 11/30/23 20:00 Temperature Pulse Rate 59 L 65 Respiratory Rate Blood Pressure Pulse Oximetry Oxygen Delivery Room Air Fraction of Inspired Oxygen 12/01/23 04:34 12/01/23 04:00 11/12
[2023-12-01 16:56] LABS: Glucose Point of Care 88 mg/dl (65-105)
--- NOTE | 2023-12-01 18:01 | WPDGIPROGNO ---
Progress Note: A&P Assessment and Plan (1) Cirrhosis of liver with ascites: Code(s): K74.60 - Unspecified cirrhosis of liver; R18.8 - Other ascites Status: Acute Assessment and Plan: work up in progress ? MARTITA given several risk factors s/p 5 L fluid removed no SBP continue with 2g na diet, nutrition support and will need follow-up office after discharge consider egd as outpatient for portal htn assessment, also will need HCC surveillance (2) Anasarca: Code(s): R60.1 - Generalized edema Status: Acute Assessment and Plan: on lasix and aldactone normal renal function and lytes ok (3) CHF (congestive heart failure): Code(s): I50.9 - Heart failure, unspecified Status: Acute (4) Edema: Code(s): R60.9 - Edema, unspecified Status: Acute Assessment and Plan: on diuretics (5) Type 2 diabetes mellitus without complications: Code(s): E11.9 - Type 2 diabetes mellitus without complications Status: Acute (6) Morbid (severe) obesity due to excess calories: Code(s): E66.01 - Morbid (severe) obesity due to excess calories Status: Acute Subjective Date/time seen: 12/01/23 18:01 Interval history: he is feeling better, still leg edema, abdomen less distended after paracentesis Review of Systems Review of Systems: All systems reviewed & are unremarkable except as noted in HPI and below Exam Const: General: comfortable Other: obese HENMT: Face/Nose/Sinus: Normal nares present Eyes: General: appearance normal, both eyes and all related structures Neck: Neck: supple Resp: Effort & Inspection: normal respiratory effort Cardio: Rate: regular rate GI: Inspection: distended GI Palp: Yes Soft to palpation Auscultation: normal bowel sounds Other: less fluid wave Skin: General skin exam: normal color Neuro: Speech: normal speech Motor exam (neuro): 5/5 motor strength present throughout Extrem: General: edema (2 + edema both legs) Objective Data Vital Signs Vital Signs: Vital Signs - 24 hr 11/30/23 20:07 11/30/23 20:12/01/23 00:00 Temperature 97.6 F Pulse Rate 87 59 L 65 Respiratory Rate 20 Blood Pressure 149/49 H Pulse Oximetry 99 Oxygen Delivery Fraction of Inspired Oxygen 11/30/23 20:00 12/01/23 04:34 12/01/23 04:00 Temperature 97.8 F Pulse Rate 62 58 L Respiratory Rate 20 Blood Pressure 137/50 L Pulse Oximetry 96 Oxygen Delivery Room Air Fraction of Inspired Oxygen 12/01/23 08:51 12/01/23 09:06 12/01/23 08:00 Temperature Pulse Rate 63 Respiratory Rate Blood Pressure Pulse Oximetry 97 Oxygen Delivery Room Air Room Air Fraction of Inspired Oxygen 21 12/01/23 08:00 12/01/23 12:00 12/01/23 14:00 Temperature 96.6 F L Pulse Rate 83 59 L 61 Respiratory Rate 20 Blood Pressure 144/78 H Pulse Oximetry 98 Oxygen Delivery Fraction of Inspired Oxygen 12/01/23 17:25 Temperature Pulse Rate 58 L Respiratory Rate Blood Pressure Pulse Oximetry Oxygen Delivery Fraction of Inspired Oxygen Intake/Output Intake/Output: Intake & Output 11/28/23 11/29/23 11/30/23 12/01/23 23:59 23:59 23:59 23:59 Intake Total 630 970 850 Output Total 800 6301 1050 Balance -170 -5331 -200 Meds/Results Medications: Active Medications Generic Name Dose Route Start Last Admin Trade Name Freq PRN Reason Stop Dose Admin Aspirin 81 mg 11/30/23 08:00 12/01/23 09:06 Aspirin 81 Mg Chewable Tablet PO 81 mg DAILY@0800 MITZY Administration Dextrose 12.5 gm 11/29/23 13:13 Dextrose 50% 25 Gm/50 Ml Syringe IV PUSH PRN PRN Hypoglycemia Protocol Furosemide 40 mg 11/29/23 17:00 12/01/23 17:21 Furosemide Inj 40 Mg/4 Ml Vial IV PUSH 40 mg BID MITZY Administration Glucagon 1 mg 11/29/23 13:13 Glucagon For Inj 1 Mg Vial IM PRN PRN Hypoglycemia Protocol Glucose 15 gm
[2023-12-01 20:21] LABS: Glucose Point of Care 117 mg/dl (65-105)
[2023-12-02 05:18] VITALS: BP 129/75; PULSE 72; RESP 16; TEMP 36.5; O2SAT 94
[2023-12-02 06:03] LABS: Basophils Percent Auto 0.6 % (0.2-1.2); Eosinophils Absolute Auto 0.1 K/mm3 (0-0.3); Eosinophils Percent Auto 1.8 % (0-4.4); Hematocrit 35.1 % (42.0-52.0); Hemoglobin 11.8 g/dL (14.0-18.0); Immature Granulocyte Absolute 0.04 K/mm3 (0.00-0.031); Immature Granulocyte Percent A 0.6 % (0-0.5); Lymphocytes Absolute Auto 2.43 K/mm3 (0.9-3.2); Lymphocytes Percent Auto 38.9 % (18.3-44.2); Mean Corpuscular HGB Conc 33.6 g/dl (32-36); Mean Corpuscular Hemoglobin 33.5 pg (26-34); Mean Corpuscular Volume 99.7 fl (80-100); Mean Platelet Volume 9.9 fl (7.4-10.4); Monocytes Absolute Auto 0.6 K/mm3 (0.1-0.6); Monocytes Percent Auto 10.3 % (2.6-8.5); Neutrophils Percent Auto 47.8 % (45.5-73.1); Platelet Count Result 179 k/mm3 (150-375); Red Blood Count 3.52 M/mm3 (4.6-6.20); Red Cell Distribution Width 13.4 % (11.5-14.5); White Blood Count 6.2 K/mm3 (4.5-10.0)
[2023-12-02 06:19] LABS: INR 1.2; Prothrombin Time 15.7 Seconds (11.1-14.7)
[2023-12-02 06:24] LABS: Alanine Aminotransferase 26 U/L (6-50); Albumin Level 2.6 g/dL (3.5-5.1); Alkaline Phosphatase 115 U/L (38-126); Anion Gap 3 mmol/L (4-12); Aspartate Amino Transferase 35 U/L (17-59); Bilirubin,Total 0.7 mg/dL (0.2-1.3); Blood Urea Nitrogen 11 mg/dL (9-20); Calcium 7.4 mg/dL (8.4-10.2); Carbon Dioxide 29 mmol/L (22-30); Chloride 103 mmol/L (98-107); Estimated CRCL calculation 62 ml/min; Estimated Glomerular Filt Rate > 60; Glucose 83 mg/dL (65-110); Magnesium 1.6 mg/dL (1.6-2.3); Potassium 3.6 mmol/L (3.4-5.0); Sodium 135 mmol/L (137-145)
[2023-12-02 08:10] LABS: Glucose Point of Care 93 mg/dl (65-105)
[2023-12-02] MEDS: ASPIRIN 81 MG CHEWABLE TABLET PO (09:48)
[2023-12-02 09:49] VITALS: PULSE 90
[2023-12-02] MEDS: SPIRONOLACTONE 50 MG TABLET 100 MG PO (09:49)
[2023-12-02] MEDS: SIMVASTATIN 20 MG TABLET 40 MG PO (09:49)
[2023-12-02] MEDS: METOPROLOL TARTRATE 50 MG TAB PO (09:49)
[2023-12-02] MEDS: MONTELUKAST SODIUM 10 MG TABLET PO (09:49)
[2023-12-02] MEDS: FUROSEMIDE INJ 40 MG/4 ML VIAL IV PUSH (09:50)
[2023-12-02 09:51] VITALS: BP 129/67; PULSE 90; RESP 16; O2SAT 100
[2023-12-02 11:59] LABS: Glucose Point of Care 124 mg/dl (65-105)
--- NOTE | 2023-12-02 13:50 | WPDGIPROGNO ---
Progress Note: A&P Assessment and Plan (1) Cirrhosis of liver with ascites: Code(s): K74.60 - Unspecified cirrhosis of liver; R18.8 - Other ascites Status: Acute Assessment and Plan: work up in progress ? MARTITA given several risk factors s/p 5 L fluid removed no SBP 2g na diet, nutrition support and will need follow-up office after discharge egd as outpatient for portal htn assessment, also will need HCC surveillance every 6 months will follow as needed (2) Anasarca: Code(s): R60.1 - Generalized edema Status: Acute Assessment and Plan: on lasix and aldactone normal renal function and lytes ok (3) CHF (congestive heart failure): Code(s): I50.9 - Heart failure, unspecified Status: Acute (4) Edema: Code(s): R60.9 - Edema, unspecified Status: Acute Assessment and Plan: on diuretics (5) Type 2 diabetes mellitus without complications: Code(s): E11.9 - Type 2 diabetes mellitus without complications Status: Acute (6) Morbid (severe) obesity due to excess calories: Code(s): E66.01 - Morbid (severe) obesity due to excess calories Status: Acute Subjective Date/time seen: 12/02/23 13:50 Interval history: doing well, less edema of legs and overall more comfortable he would like to go home soon Review of Systems Review of Systems: All systems reviewed & are unremarkable except as noted in HPI and below Exam Const: General: comfortable Other: obese HENMT: Face/Nose/Sinus: Normal nares present Eyes: General: appearance normal, both eyes and all related structures Neck: Neck: supple Resp: Effort & Inspection: normal respiratory effort Cardio: Rate: regular rate GI: Inspection: distended GI Palp: Yes Soft to palpation Auscultation: normal bowel sounds Other: less fluid wave Skin: General skin exam: normal color Neuro: Speech: normal speech Motor exam (neuro): 5/5 motor strength present throughout Extrem: General: edema (2 + edema both legs) Objective Data Vital Signs Vital Signs: Vital Signs - 24 hr 12/01/23 14:00 12/01/23 17:25 12/01/23 19:45 Temperature 96.6 F L 97.9 F Pulse Rate 61 58 L 100 Respiratory Rate 20 18 Blood Pressure 144/78 H 133/54 L Pulse Oximetry 98 98 Oxygen Delivery 12/01/23 20:00 12/01/23 23:14 12/02/23 05:18 Temperature 97.7 F Pulse Rate 72 Respiratory Rate 16 Blood Pressure 129/75 Pulse Oximetry 98 94 Oxygen Delivery Room Air Room Air 12/02/23 09:49 12/02/23 09:51 12/02/23 09:55 Temperature Pulse Rate 90 90 Respiratory Rate 16 Blood Pressure 129/67 Pulse Oximetry 100 Oxygen Delivery Room Air Intake/Output Intake/Output: Intake & Output 11/29/23 11/30/23 12/01/23 12/02/23 23:59 23:59 23:59 23:59 Intake Total 722 988 0961 440 Output Total 800 8311 1350 1425 [facility] -170 -5331 -110 -985 Meds/Results Medications: Active Medications Generic Name Dose Route Start Last Admin Trade Name Freq PRN Reason Stop Dose Admin Aspirin 81 mg 11/30/23 08:00 12/02/23 09:48 Aspirin 81 Mg Chewable Tablet PO 81 mg DAILY@0800 MITZY Administration Dextrose 12.5 gm 11/29/23 13:13 Dextrose 50% 25 Gm/50 Ml Syringe IV PUSH PRN PRN Hypoglycemia Protocol Furosemide 40 mg 11/29/23 17:00 12/02/23 09:50 Furosemide Inj 40 Mg/4 Ml Vial IV PUSH 40 mg BID MITZY Administration Glucagon 1 mg 11/29/23 13:13 Glucagon For Inj 1 Mg Vial IM PRN PRN Hypoglycemia Protocol Glucose 15 gm 11/29/23 13:13 Glucose Oral Gel 15 Gm Of Glucse In 37.5 Gm Tube PO PRN PRN Hypoglycemia Protocol Dextrose 1,000 mls @ 100 mls/hr 11/29/23 13:13 Dextrose 5% 1,000 Ml IVPB PRN PRN Hypoglycemia Protocol Insulin Aspart 2 - 5 units 11/30/23 17:00 12/02/23 12:00 Insulin Aspart (*Bkc) 100 Units/Ml SUB-Q Not Given [facility] Protocol Insulin As
[2023-12-02 14:00] VITALS: BP 137/83; PULSE 64; RESP 18; TEMP 36.4; O2SAT 97
--- NOTE | 2023-12-02 14:58 | PM.DS ---
DS: Admitting Diagnosis Discharge Date 12/02/2023 Admitting Diagnosis anasarca, cirrhosis of liver with ascites, HTN, HLD, DM2, CAD DS: Discharge Diagnosis Discharge Diagnosis (1) Cirrhosis of liver with ascites: Code(s): K74.60 - Unspecified cirrhosis of liver; R18.8 - Other ascites Status: Acute Assessment and Plan: new onset (2) Anasarca: Code(s): R60.1 - Generalized edema Status: Acute Assessment and Plan: new onset (3) Essential (primary) hypertension: Code(s): I10 - Essential (primary) hypertension Status: Chronic (4) Pure hypercholesterolemia, unspecified: Code(s): E78.00 - Pure hypercholesterolemia, unspecified Status: Chronic (5) Type 2 diabetes mellitus without complications: Code(s): E11.9 - Type 2 diabetes mellitus without complications Status: Acute (6) Acute combined systolic and diastolic congestive heart failure: Code(s): I50.41 - Acute combined systolic (congestive) and diastolic (congestive) heart failure Status: Acute Assessment and Plan: new onset DS: Summary Hospital Course Hospital Course: This is an 83 year old male patient admitted to the hospital with anasarca and found to have new onset liver cirrhosis with need for paracentesis as well as 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 Patient only with history of HTN, HLD, DM2 and remote CAD with one prior stent. He developed severe swelling from feet to abdomen. He underwent paracentesis with 5 liters drained. Patient had labs drawn to investigate SILVA as likely cause of cirrhosis. Patient seen by GI. Diuresis with improvement in swelling. Echo completed showing EF 50-55% (mild dysfunction) and grade 1 diastolic dysfunction. Patient will need to follow with PCP and GI after discharge. Status at Discharge Cognitive/behavioral status at discharge: Awake, alert, oriented and very pleasant Functional status at discharge: uses cane/walker (prefers cane) Overall status at discharge: patient is progressing back to baseline Time Spent with Patient Time attestation: Total time spent providing and/or coordinating discharge services: 50 minutes Time spent: Greater than 30 minutes Exam Narrative: General: In no acute distress, well nourished Head: atraumatic Eyes: EOMI, PERRLA, sclera clear ENT: moist mucous membranes, nasal passages clear Neck: supple, no JVD, no adenopathy, trachea midline Cardiac: Regular rate and regular rhythm. Normal S1 and S2. No murmur, gallops or friction rubs, peripheral pulses intact. Respiratory: Lungs clear to auscultation, no adventitious lung sounds, currently on room air Gastrointestinal: minimal residual ascites noted, soft and nontender Extremities: moves all extremities well, 1+ lower extremity edema Skin: clean, dry, intact. No wounds or lesions. Neuro: Alert and oriented x4, cranial nerves intact, no neuro deficits. Psych: normal mood, normal affect, interactive DS: Data Data Completed and Pending Completed studies during hospitalization: CXR, CT chest abd pelvis, echocardiogram Labs on day of discharge: Labs from last 24 hours 12/02/23 12/02/23 12/02/23 11:48 08:07 05:48 WBC 6.2 RBC 3.52 L Hgb 11.8 L Hct 35.1 L MCV 99.7 MCH 33.5 MCHC 33.6 RDW 13.4 Plt Count 179 MPV 9.9 Immature Gran % (Auto) 0.6 H Neut % (Auto) 47.8 Lymph % (Auto) 38.9 [place] % (Auto) 10.3 H Eos % (Auto) 1.8 Baso % (Auto) 0.6 Lymph # (Auto) 2.43 [place] # (Auto) 0.6 Eos # (Auto) 0.1 Baso # (Auto) 0.0 Abs Immat Gran (auto) 0.04 H Absolute Neuts (auto) 3.0 Absolute Nucleated RBC 0.000 Nucleated RBC % 0.0 PT 15.7 H INR 1.2 Sodium 135 L Potassium 3.6 Chloride 103 Carbon Dioxide 29 Anion Gap 3 L BUN 11 Creatinine 1.10 Estim Creat Clear Calc 62 Estimated GFR > 60 Glucose 83 POC Capillary Gluc
[2023-12-03 07:48] LABS: Albumin Peritoneal Fluid 0.6 g/dL; Total Protein Peritoneal Fluid <3.0 g/dL
[2023-12-04 16:58] LABS: Actin Antibody (IgG) <20 U (<20)
[2023-12-06 13:18] LABS: LKM 1 Antibody <=20.0 U (<=20.0)
[2023-12-07 09:08] LABS: Mitochondrial (M2) Ab (IgG) <20.0 U
== END 2023-12-02 15:37 | disposition home or self-care (01) | DRG 432 ==
LOC: ANHED 08:13 → ANH2MED 09:02
PROVIDERS: Internal Medicine Gastroenterology; Nurse Practitioner Acute Care; Physician Assistant; Admitting Provider General Practice; Emergency Provider Emergency Medicine; PCP Family Medicine Adolescent Medicine; Visit Provider Nurse Practitioner
DX: K74.60 Unspecified cirrhosis of liver (principal); I50.41 Acute combined systolic (congestive) and diastolic (congestive) heart failure; I85.10 Secondary esophageal varices without bleeding; R18.8 Other ascites; K76.6 Portal hypertension; Z68.41 Body mass index [BMI] 40.0-44.9, adult; I11.0 Hypertensive heart disease with heart failure; I25.10 Atherosclerotic heart disease of native coronary artery without angina pectoris; E11.9 Type 2 diabetes mellitus without complications; E78.00 Pure hypercholesterolemia, unspecified; E66.01 Morbid (severe) obesity due to excess calories; Z96.653 Presence of artificial knee joint, bilateral; Z20.822 Contact with and (suspected) exposure to COVID-19; Z79.82 Long term (current) use of aspirin; Z87.891 Personal history of nicotine dependence; Z95.5 Presence of coronary angioplasty implant and graft
CPT/HCPCS: 36415; 49083; 71046; 71260; 74177; 80053; 80074; 81256; 82042; 82104; 82390; 82607; 82728; 82746; 82948; 83036; 83520; 83540; 83550; 83735; 83880; 84132; 84157; 84439; 84443; 84480; 84484; 85025; 85027; 85046; 85610; 85730; 86364; 86376; 87070; 87075; 87205; 87637; 89051; 93005; 93306; 94762; 96374; 96376; 99285; A9270; G0378; J1940; Q9967

== ENCOUNTER 2024-11-14 07:33 | Outpatient (CLI) | payer MEDICARE, OTHER, SELFPAY ==
--- NOTE | ~2024-11-14 | US_ITS ---
EXAMINATION: US paracentesis abd w/image DATE: 11/14/2024 09:45 INDICATION: Increasing ascites TECHNIQUE: The procedure and its risks and benefits were discussed with the patient. Potential risks discussed included bleeding and infection. The skin was prepped and draped in sterile fashion. 1% lid ocaine was used for local anesthesia. Under ultrasound guidance, a 5 Fr catheter with trochar was adv anced into the ascites in the left lower quadrant. Fluid was aspirated into vacuum bottles. The kyle ter was removed, and a dressing was applied. There were no immediate complications. FINDINGS: Ultrasound images demonstrate ascites and the catheter within the fluid. IMPRESSION: 1. Successful ultrasound-guided paracentesis yielding 5000 mL of straw-colored fluid. Reviewed, dictated and finalized at location A.
[2024-11-14 08:18] LABS: Mean Platelet Volume 9.9 fl (7.4-10.4); Platelet Count Result 214 k/mm3 (150-375)
[2024-11-14 08:52] LABS: INR 1.3; Prothrombin Time 15.9 Seconds (11.1-14.7)
== END 2024-11-14 07:34 | disposition home or self-care (01) ==
PROVIDERS: Radiology Diagnostic Radiology; PCP Family Medicine Adolescent Medicine; Visit Provider Family Medicine Adolescent Medicine
DX: K74.60 Unspecified cirrhosis of liver (principal); R18.8 Other ascites
CPT/HCPCS: 36415; 49083; 85049; 85610

== ENCOUNTER 2025-06-06 18:25 | Emergency (ER) | payer MEDICARE, OTHER, SELFPAY ==
--- NOTE | ~2025-06-06 | XR_ITS ---
XR chest 1V portable 06/06/2025 21:14 Indication: Shortness of breath Procedure: AP portable chest Comparison: Comparison to multiple prior studies sequentially, with oldest reviewed study dated 10/13/2011. Findings: Left perihilar airspace disease, compatible with pneumonia. There is peribronchial thickening. No pleural effusion, pneumothorax or acute osseous abnormality. Impression: 1: Left perihilar airspace disease, compatible with pneumonia. Reviewed, dictated and finalized at location O. CE MACHINES TEACHER Impression: 1: Left perihilar airspace disease, compatible with pneumonia.
--- NOTE | ~2025-06-06 | CT_ITS ---
EXAMINATION: CT abdomen pelvis w con DATE: 06/07/2025 00:22 INDICATION: Abdominal pain. TECHNIQUE: Computed tomography (CT) of the abdomen and pelvis was performed with 100 mL Omnipaque 350 intravenous contrast. Automated exposure control and iterative reconstruction technique were employed. The dose-length product was 1476.04 mGy-cm. COMPARISON: CT abdomen and pelvis 11/29/2023 FINDINGS: The visualized portions of lung bases demonstrate mild atelectasis. There is a small right pleural effusion. The heart size is normal. There are coronary artery calcifications. There are calcifications of the aortic valve. No pericardial effusion. Paraesophageal varices are noted. There is wall thickening of the esophagus, likely interstitial edema. The liver demonstrates surface nodularity, consistent with cirrhosis. Calcifications in the liver and spleen are consistent with old granulomatous disease. The gallbladder is normal in size. The pancreas, adrenal glands, and kidneys are normal. There are scattered diverticula in the colon. There is wall thickening of the small bowel and colon, likely interstitial edema. The appendix is normal. There is a large volume of ascites. Peritoneal enhancement is noted. Body wall edema is noted. There is chronic mild periportal lymphadenopathy, likely reactive. There is calcified atherosclerosis of the aorta and many of the other arteries. 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 Inferior mesenteric artery is enlarged. There are chronic bilateral L5 pars defects. There is 3 mm anterolisthesis of L5 on S1. There is mild chronic anterior wedging of multiple vertebral bodies. There is moderate thoracic spinal lumbar spondylosis. IMPRESSION: 1. Cirrhosis of the liver with portal venous hypertension. 2. Large volume of ascites. 3. Small right pleural effusion. Reviewed, dictated and finalized at location E. AULIC MINER
--- OUTSIDE RECORDS SUMMARY | 2025-06-06 18:27 | XMS_ITS | Clinical Summary ---
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 Name Role Phone Salo Barth MD Primary Care Prov ider Allergies No known active allergies Medications HYDROcodone-tomasz taminophen (NORCO) 5-325 mg per tablet Take 1 tablet by mouth 2 (two) times a day as needed for pain 02/10/2025 Active spironolactone (ALDACTONE) 100 mg tablet Take 1 tablet (100 mg total) by mouth 2 (two) times a day 01/26/2025 Active albumin 5 % bottle Infuse IV Given at [facility] Active hydrOXYzine (ATARAX) 25 mg tablet Take 1 tablet (25 mg total) by mouth 3 (three) times a day as needed for itching Active aspirin 81 mg enteric coated tablet Take 1 tablet (81 mg total) by mouth daily Active benazepriL (LOTENSIN) 20 mg tablet Take 1 tablet (20 mg total) by mouth daily Active furosemide (LASIX) 40 mg tablet Take 1 tablet (40 mg total) by mouth daily Active metoprolol tartrate (LOPRESSOR) 50 mg immediate release tablet Take 1 tablet (50 mg total) by mouth 2 (two) times a day Active hydrOXYzine (ATARAX) 25 mg tablet Take 1 tablet (25 mg total) by mouth every 8 (eight) hours as needed for itching for up to 20 doses 20 tablet 05/24/2025 Active Active Problems Problem Noted Date Diagnosed Date 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 Ascites of liver 02/22/2025 Encounters Date Type Department Care Team Description 05/31/2025 1:45 PM FACILITIES OFFICER - 05/31/2025 11:59 PM FACILITIES OFFICER Hospital Encounter [address] [address] Abram Barrera, LESLIE Ascites of liver (Primary Dx); 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) Discharge Disposition: Discharge to home or self care 05/31/2025 12:10 PM FACILITIES OFFICER - 05/31/2025 11:59 PM FACILITIES OFFICER Hospital Encounter [address] [address] 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) Discharge Disposition: Discharge to home or self care 05/24/2025 2:24 PM FACILITIES OFFICER - 05/24/2025 9:51 PM FACILITIES OFFICER Emergency [address] [address] Barry Cobos, DO Other ascites (Primary Dx) Discharge Disposition: Discharge to home or self care 05/03/2025 12:50 PM FACILITIES OFFICER Lab [facility] [address] [place] [id number] Cirrhosis of liver with ascites, unspecified hepatic cirrhosis type (HCC) 05/03/2025 12:44 PM FACILITIES OFFICER - 05/03/2025 11:59 PM FACILITIES OFFICER Hospital Encounter [address] [address] Abram Barrera, LESLIE Ascites of liver (Primary Dx); 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) Discharge Disposition: Discharge to home or self care 05/03/2025 11:19 AM FACILITIES OFFICER - 05/03/2025 11:59 PM FACILITIES OFFICER Hospital Encounter [address] [address] Cirrhosis of liver with ascites, unspecified hepatic cirrhosis type (HCC) Discharge Disposition: Discharge to home or self care 05/02/2025 Orders Only [address] [address] Zayda Latham RN 04/12/2025 Orders Only [address] [place] [address] Liat Guthrie RN 04/10/2025 3:29 PM CDT - 04/10/2025 11:59 PM CDT Hospital Encounter [address] [address] Aliya Carney RN Ascites of liver (Primary Dx); 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) Discharge Disposition: Discharge to home or self care 04/10/2025 2:16 PM CDT - 04/10/2025 11:59 PM CDT Hospital Encounter [address] [address] Other ascites; Cirrhosis of liver with ascites, unspecified hepatic cirrhosis type (HCC) Discharge Disposition: Discharge to home or self care 03/15/2025 11:44 AM CDT - 03/15/2025 11:59 PM CDT Hospital Encounter [address] [address] Spring Bowden RN Ascites of liver (Primary Dx); 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) Discharge Disposition: Discharge to home or self care 03/15/2025 10:00 AM CDT - 03/15/2025 11:59 PM CDT Hospital Encounter [address] [address] Cirrhosis of liver with ascites, unspecified hepatic cirrhosis type (HCC); Ascites of liver Discharge Disposition: Discharge to home or self care 03/14/2025 Orders Only [facility] [address] [place] [address] Shae Rosales RN 03/13/2025 Orders Only [address] [address] Spring Bowden RN from Last 3 Months Surgical History Surgery Date Site/Laterality Comments US GUIDED PARACENTESIS 01/31/2025 N/A US GUIDED PARACENTESIS 02/23/2025 N/A US GUIDED PARACENTESIS 03/15/2025 N/A US GUIDED PARACENTESIS 04/10/2025 N/A US GUIDED PARACENTESIS 05/03/2025 N/A US GUIDED PARACENTESIS 05/31/2025 N/A Medical History Medical History Date Comments Cirrhosis of liver with ascites (HCC) 02/22/2025 Ascites of liver 02/22/2025 Family History Medical History Relation Name Comments Heart attack Mother 2 Myocardial Infa rction; Relation Name Status Comments Mother 1 Alive Mother 2 Social History Tobacco Use Types Packs/Day Years Used Date Smoking Tobacco: Former Cigarettes Q uit: 06/14/1997 Alcohol Use Standard Drinks/Week Comments No 0 (1 standard drink = 0.6 oz pur e alcohol) Personal Safety Answer Date Recorded Have you ever been in or are you currently in a harmful physical or emotional relationship or is someone making you feel afraid or unsafe? Denies 05/31/2025 Sex and Gender Information Value Date Recorded Sex Assigned at Not on file Legal Sex Male 2:21 AM FACILITIES OFFICER Gender Identity Not on file Sexual Orientation Not on file Last Filed Vital Signs Vital Sign Reading Time Taken Comments Blood Pressure 115/54 05/31/2025 2:05 PM FACILITIES OFFICER Pulse 76 05/31/2025 2:05 PM FACILITIES OFFICER Temperature 36.3 C (97.3 F) 05/31/2025 2:05 PM FACILITIES OFFICER Respiratory Rate 22 05/31/2025 2:05 PM FACILITIES OFFICER Oxygen Saturation 100% 05/31/2025 2:05 PM FACILITIES OFFICER Inhaled Oxygen Concentration - - Weight 127 kg (280 lb) 05/24/2025 5:53 PM FACILITIES OFFICER Height 175.3 cm (5' 9) 10/04/2012 11:15 AM CDT Body Mass Index - - Plan of Treatment Health Maintenance Due Date Last Done Comments Depression Screening 1942 Hepatitis B Screening 1960 Zoster Vaccine (1 of 2) 1992 Well Visit 65+ 2007 Pneumococcal vaccine 65+ (2 of 2 - PPSV23, PCV20, or PCV21) 05/09/2018 03/14/2018 Influenza Vaccine (#1) 2025 04/07/2022 Fall Risk Assessment 05/31/2026 05/31/2025 DTaP/Tdap/Td Vaccine (2 - Td or Tdap) 01/29/2032 Procedures Procedure Name Priority Date/Time Associated Diagnosis Comments US GUIDED PARACENTESIS Schedule Routine, Read Routine (OP Routine) 05/31/2025 1:37 PM FACILITIES OFFICER 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) CA ABDOM PARACENTESIS DX/THER W/IMAGING GUIDANCE Routine 05/24/2025 4:59 PM FACILITIES OFFICER TROPONIN T HIGH-SENSITIVITY 2-HOUR Timed 05/24/2025 4:33 PM FACILITIES OFFICER PROTIME-INR STAT 05/24/2025 3:18 PM FACILITIES OFFICER APTT STAT 05/24/2025 3:18 PM FACILITIES OFFICER XR CHEST 1 VIEW ED 05/24/2025 2:43 PM FACILITIES OFFICER ECG 12-LEAD STAT 05/24/2025 2:32 PM FACILITIES OFFICER EGFR STAT 05/24/2025 2:24 PM FACILITIES OFFICER DIFFERENTIAL AUTO STAT 05/24/2025 2:2 4 PM FACILITIES OFFICER PRO B-TYPE NATRIURETIC PEPTIDE STAT 05/24/2025 2:24 PM FACILITIES OFFICER TROPONIN T HIGH-SENSITIVITY SERIES (BASELINE, 2HR, 4HR, 6HR) STAT 05/24/2025 2:24 PM FACILITIES OFFICER CBC WITH AUTO DIFFERENTIAL STAT 05/24/2025 2:24 PM FACILITIES OFFICER COMPREHENSIVE METABOLIC PANEL STAT 05/24/2025 2:24 PM FACILITIES OFFICER US GUIDED PARACENTESIS Schedule Routine, Read Routine (OP Routine) 05/03/2025 12:43 PM FACILITIES OFFICER Cirrhosis of liver with ascites, unspecified hepatic cirrhosis type (HCC) CBC WITHOUT DIFFERENTIAL STAT 05/03/2025 10:59 AM FACILITIES OFFICER Cirrhosis of liver with ascites, unspecified hepatic cirrhosis type (HCC) PROTIME-INR STAT 05/03/2025 10:59 AM FACILITIES OFFICER Cirrhosis of liver with ascites, unspecified hepatic cirrhosis type (HCC) APTT STAT 05/03/2025 10:59 AM FACILITIES OFFICER Cirrhosis of liver with ascites, unspecified hepatic cirrhosis type (HCC) US GUIDED PARACENTESIS Schedule Routine, Read Routine (OP Routine) 04/10/2025 3:19 PM CDT Other ascites Cirrhosis of liver with ascites, unspecified hepatic cirrhosis type (HCC) US GUIDED PARACENTESIS Schedule Routine, Read Routine (OP Routine) 03/15/2025 11:35 AM CDT Cirrhosis of liver with ascites, unspecified hepatic cirrhosis type (HCC) Ascites of liver from Last 3 Months Results * US Guided Paracentesis (05/31/2025 1:37 PM FACILITIES OFFICER) Anatomical Region Laterality Modality Abdomen N/A Ultrasound, Comp uted Radiography 05/31/2025 1:55 PM FACILITIES OFFICER Impressions 05/31/2025 1:55 PM FACILITIES OFFICER Successful sonographic guided paracentesis. Electronically signed by: Darryn Almaraz M.D. Narrative 05/31/2025 1:55 PM FACILITIES OFFICER Technique: Sonographic guided paracentesis. Indication: Ascites. Procedure: The alternatives to, the benefits of and the risks of the procedure were discussed with the patient and informed written consent was obtained. The patient was placed in a supine position and the skin was prepped and draped in the usual sterile fashion. Local anesthesia was achieved with 2 ml of 1% lidocaine. Under sonographic guidance, a 5 [place] Citizen catheter was inserted into the peritoneal cavity and 12 liters of peritoneal fluid were removed. The patient tolerated the procedure well. There were no immediate complications. Procedure Note Darryn Almaraz MD - 05/31/2025 Technique: Sonographic guided paracentesis. Indication: Ascites. Procedure: The alternatives to, the benefits of and the risks of the procedure were discussed with the patient and informed written consent was obtained. The patient was placed in a supine position and the skin was prepped and draped in the usual sterile fashion. Local anesthesia was achieved with 2 ml of 1% lidocaine. Under sonographic guidance, a 5 [place] Citizen catheter was inserted into the peritoneal cavity and 12 liters of peritoneal fluid were removed. The patient tolerated the procedure well. There were no immediate complications. IMPRESSION: Successful sonographic guided paracentesis. Electronically signed by: Darryn Almaraz M.D. us Salo Barth MD IMG US PROCEDURES Final Result * CA ABDOM PARACENTESIS DX/THER W/IMAGING GUIDANCE (05/24/2025 4:59 PM FACILITIES OFFICER) Narrative Grant Hardy MD - 05/24/2025 4:59 PM FACILITIES OFFICER Grant Hardy MD 05/24/2025 5:00 PM Paracentesis Date/Time: 05/24/2025 4:59 PM Performed by: Grant Hardy MD Authorized by: Barry Cobos DO [place] Protocol: RN Notified of Procedure: yes Informed consent: Risks, benefits, alternatives discussed Patient's stated name/ matches armband: Yes Allergies confirmed: yes Consent form signed, dated, timed; matches correct patient, intended procedure and site: Yes Imaging: Pertinent imaging reviewed, correctly oriented and match to patient identifiers Lab/Diag test results: Pertinent lab/diag tests reviewed and match to patient identifiers Supplies, devices and special equipment are available: yes Site/side marked: yes Immediately prior to the procedure a time out was called: a verbal verification by the procedure participants confirmed correct patient identity, correct site/side marked and visible (if applicable); agreement on procedure to be done; and correct patient positioning Pre-procedure details: Procedure purpose: Therapeutic Preparation: Patient was prepped and draped in usual sterile fashion Anesthesia (see MAR for exact dosages): Anesthesia method: Local infiltration Local anesthetic: Lidocaine 1% Procedure details: Needle gauge: 18 Ultrasound guidance: yes Ultrasound guidance used for: Pre-procedure marking Puncture site: R lower quadrant Fluid removed amount: 14 L Fluid appearance: Serous Dressing: Adhesive bandage Post-procedure details: Patient tolerance of procedure: Tolerated well, no immediate complications All guidewires, needles, sponges or other items are accounted for: yes Any special post procedure monitoring, testing or other considerations: n/a All specimens identified, labeled and matched to patient identification: n/a Responsible green party for transporting specimen(s) to lab determined: n/a Barry Cobos DO IN CLINIC/BEDSIDE ORDERABLES F inal Result * (ABNORMAL) Troponin T high-sensitivity 2-hour (05/24/2025 4:33 PM FACILITIES OFFICER) Trop T hs 26(H) <=22 ng/L Comment: Interpretive Data For further hscTnT resources including the diagnostic algorithm and an aid in interpretation, copy and paste this link: https://nrl.testcatalog.org/show/hsTrop Current Interpretive Data last revised 2020. Trop T hs delta -4 ng/L HILARY BARTLETT Trop T hs interp Insignificant HILARY Blood 05/24/2025 4:33 PM FACILITIES OFFICER 05/24/2025 4:38 PM FACILITIES OFFICER Grant Hardy MD LAB BLOOD ORDERABLES Final Result Performing Organization Address [facility] Co de Phone Number HILARY [address] [place] [address] * aPTT (05/24/2025 3:18 PM FACILITIES OFFICER) Pathologist [facility] aPTT 29 22 - 37 sec Comment: Interpretive data aPTT test has not been evaluated for monitoring heparin therapy. The anti-Xa is the preferred test. Current interpretive data was last revised on 2019. Blood 05/24/2025 3:18 PM FACILITIES OFFICER 05/24/2025 3:21 PM FACILITIES OFFICER Barry Cobos DO LAB BLOOD ORDERABLES Final Res ult Performing Organization Address [facility] Co de Phone Number [id number] [place] [address] * (ABNORMAL) Protime-INR (05/24/2025 3:18 PM FACILITIES OFFICER) PT 15.70(H) 12.00 - 14.60 sec INR 1.24(H) 0.90 - 1.20 HILARY BARTLETT Comment: Interpretive data Oral anticoagulant therapeutic ranges: Venous thromboembolism prophylaxis or treatment: 2.0-3.0 CARDIOLOGY Standard range: 2.0-3.0 High-intensity range: 2.5-3.5 Refer to indication-specific guidelines for appropriate target ranges for prosthetic heart valve replacement. Current interpretive data was last revised on 2019. Blood 05/24/2025 3:18 PM FACILITIES OFFICER 05/24/2025 3:21 PM FACILITIES OFFICER us Barry Cobos DO LAB BLOOD ORDERABLES Final Res ult HILARY [address] [facility] [place] [address] * XR Chest 1 Vw Portable (If patient hemodynamically UNstable or UNable to ambulate) (05/24/2025 2:43PM FACILITIES OFFICER) Anatomical Region Laterality Modality Body, Chest N/A Computed Radiogr aphy 05/24/2025 2:49 PM FACILITIES OFFICER Impressions 05/24/2025 2:49 PM FACILITIES OFFICER 1. No focal consolidation, effusion or pneumothorax. Electronically signed by: Bessy Hoffman M.D. Narrative 05/24/2025 2:49 PM FACILITIES OFFICER EXAM DESCRIPTION: XR CHEST 1 VIEW REASON FOR STUDY: Increased shortness of breath and swelling. Patient reports being 3 weeks overdue for paracentesis. 10 L removed the last time. Pitting edema TECHNIQUE: Frontal radiographic view of the chest COMPARISON: None FINDINGS: LUNGS/PLEURA: No consolidation or pneumothorax. No large pleural effusion. HEART/MEDIASTINUM: Heart size is normal. Normal mediastinal and hilar contours. HARDWARE/LINES/TUBES: None. BONES: Degenerative changes most evident within the spine and left shoulder. Procedure Note Bessy Hoffman MD - 05/24/2025 EXAM DESCRIPTION: XR CHEST 1 VIEW REASON FOR STUDY: Increased shortness of breath and swelling. Patient reports being 3 weeks overdue for paracentesis. 10 L removed the last time. Pitting edema TECHNIQUE: Frontal radiographic view of the chest COMPARISON: None FINDINGS: LUNGS/PLEURA: No consolidation or pneumothorax. No large pleural effusion. HEART/MEDIASTINUM: Heart size is normal. Normal mediastinal and hilar contours. HARDWARE/LINES/TUBES: None. BONES: Degenerative changes most evident within the spine and left shoulder. IMPRESSION: 1. No focal consolidation, effusion or pneumothorax. Electronically signed by: Bessy Hoffman M.D. Barry Cobos DO IMG XR PROCEDURES Final Result * ECG 12 lead (05/24/2025 2:32 PM FACILITIES OFFICER) Ventricular Rate EKG/Min 67 BPM [facility] Atrial Rate 67 BPM [facility] CA-Interval (MSEC) 160 ms [facility] QRS-Interval (MSEC) 78 ms [facility] QT-Interval (MSEC) 384 ms [facility] QTc 405 ms [facility] P [place] 48 degrees [facility] R [place] -16 degrees [facility] T [place] -32 degrees [facility] Diagnosis Normal sinus rhythm Low voltage QRS Cannot rule out Anterior infarct , age undetermined Abnormal ECG When compared with ECG of 08-SEP-1997 07:50, Minimal criteria for Anterior infarct are now Present QT has shortened Confirmed by MARILIN HERNANDEZ M.D. ([id number]) on 05/24/2025 3:52:55 PM [facility] 05/24/2025 2:32 PM FACILITIES OFFICER 05/24/2025 3:52 PM FACILITIES OFFICER Barry Cobos DO ECG ORDERABLES Final Result [facility] * (ABNORMAL) Troponin T high-sensitivity series (baseline, 2hr, 4hr, 6hr) (05/24/2025 2:24 PM FACILITIES OFFICER) Pathologist [facility] Trop T hs 30(H) <=22 ng/L Comment: Interpretive Data For further hscTnT resources including the diagnostic algorithm and an aid in interpretation, copy and paste this link: https://nrl.testcatalog.org/show/hsTrop Current Interpretive Data last revised 2020. Blood 05/24/2025 2:24 PM FACILITIES OFFICER 05/24/2025 2:28 PM FACILITIES OFFICER us Barry Cobos DO LAB BLOOD ORDERABLES Final Res ult Performing Organization Address [facility] Co de Phone Number HILARY [address] [address] * eGFR (05/24/2025 2:24 PM FACILITIES OFFICER) eGFR 67 >=60 mL/min/1. 73 m2 Comment: Interpretive Data Reference Interval Normal >/= 90 mL/min/1.73m2 Mildly decreased* 60 - 89 mL/min/1.73m2 Mildly to moderately decreased 45 - 59 mL/min/1.73m2 Moderately to severely decreased 30 - 44 mL/min/1.73m2 Severely decreased 15 - 29 mL/min/1.73m2 Kidney Failure < 15 mL/min/1.73m2 *Relative to young adult level Estimated glomerular filtration rate is determined by the 2020 CKD-EPI equation recommended by the National Kidney Foundation (A Unifying Approach to GFR Estimation: Recommendations of the NKF-ASK Task Force on Reassessing the Inclusion of Race in Diagnosing Kidney Disease, JASN 2020). The CKD-EPI equation should not be used for patients with unstable renal function and has not been validated in children and those over 70. Current interpretive data was last reviewed 2021. Blood 05/24/2025 2:24 PM FACILITIES OFFICER 05/24/2025 2:28 PM FACILITIES OFFICER Grant Hardy MD LAB BLOOD ORDERABLES Final Result Performing Organization Address City/[facility]/ZIP Co de Phone Number [id number] [place] [address] * Differential, auto (05/24/2025 2:24 PM FACILITIES OFFICER) Pathologist [facility] Neutrophil abs 5.92 1.50 - 6.50 K/cumm Imm gran abs 0.03 0.00 - 0.10 K/cumm [facility] Lymphocyte abs 0.97 0.80 - 3.30 K/cumm [facility] Monocyte abs 0.70 0.20 - 0.80 K/cumm [facility] Eosinophil abs 0.41 0.00 - 0.50 K/cumm [facility] Basophil abs 0.08 0.00 - 0.10 K/cumm [facility] Neutrophil pct 72.9 % [facility] Comment: Interpretive Data Percent cell count reference ranges are not reported, since discordance with absolute values may lead to misinterpretation of CBC data. Current Interpretive Data was last revised on 2017. Imm gran pct 0.4 % [facility] Comment: Interpretive Data Percent cell count reference ranges are not reported, since discordance with absolute values may lead to misinterpretation of CBC data. Current Interpretive Data was last revised on 2017. Lymphocyte pct 12.0 % [facility] Comment: Interpretive Data Percent cell count reference ranges are not reported, since discordance with absolute values may lead to misinterpretation of CBC data. Current Interpretive Data was last revised on 2017. Monocyte pct 8.6 % [facility] Comment: Interpretive Data Percent cell count reference ranges are not reported, since discordance with absolute values may lead to misinterpretation of CBC data. Current Interpretive Data was last revised on 2017. Eosinophil pct 5.1 % [facility] Comment: Interpretive Data Percent cell count reference ranges are not reported, since discordance with absolute values may lead to misinterpretation of CBC data. Current Interpretive Data was last revised on 2017. Basophil pct 1.0 % [facility] Comment: Interpretive Data Percent cell count reference ranges are not reported, since discordance with absolute values may lead to misinterpretation of CBC data. Current Interpretive Data was last revised on 2017. Blood 05/24/2025 2:24 PM FACILITIES OFFICER 05/24/2025 2:28 PM FACILITIES OFFICER us Barry Cobos DO LAB BLOOD ORDERABLES Final Res ult HILARY BARTLETT [address] [facility] Department [place] [address] * (ABNORMAL) Pro B-type natriuretic peptide (05/24/2025 2:24 PM FACILITIES OFFICER) NT-proBNP 3,108(H) <=450 pg/mL Comment: Interpretive Comments: A. Dyspnea in Acute Care Setting All Ages: < 300 pg/ml, acute heart failure unlikely. < 50 yrs: 300 - 450 pg/ml, further investigation warranted. > 450 pg/ml, acute heart failure likely. 50 - 74 yrs: 300 - 900 pg/ml, further investigation warranted. > 900 pg/ml, acute heart failure likely . > or = 75 yrs: 450 - 1800 pg/ml, further investigation warranted. > 1800 pg/ml, acute heart failure likely. B. Non-acute Setting < 75 yrs < 125 pg/ml, rules out heart failure. > or = 125 pg/ml, further investigation warranted. > or = 75 yrs < 450 pg/ml, rules out heart failure. > or = 450 pg/ml, further investigation warranted. - Knowledge of each individual patient's NT-proBNP range may be more useful than using similar cut-points for every patient. Please note that marked elevations in NT-proBNP levels may be observed in state other than Left Ventricular Congestive Failure, including: acute coronary syndromes, right heart strain/failure (including pulmonary embolism and cor pulmonale), critical illness, renal failure, as well as advanced age. - References: 1. Dandre JL et.al. Eur Heart J. 2006:27:330-337. 2. Belén RW, Marlene PANDEY. J. AM Jose D Cardiol: Cardiovasc Imag. 2009;2: 216- 225. Interpretive Data Last Revised Date: 2018. Blood 05/24/2025 2:24 PM FACILITIES OFFICER 05/24/2025 2:28 PM FACILITIES OFFICER us Barry Cobos DO LAB BLOOD ORDERABLES Final Res ult FABIANOIEV [address] [facility] Department [place] [address] * (ABNORMAL) CBC with auto differential (05/24/2025 2:24 PM FACILITIES OFFICER) Pathologist [facility] WBC 8.11 3.80 - 9.90 K/cumm Hgb 10.0(L) 13.0 - 17.5 g/dL [facility] Hct 30.7(L) 38.9 - 50.3 % [facility] Plt 173 150 - 400 K/cumm [facility] MPV 9.8 9.1 - 12.3 fL [facility] RBC 3.02(L) 4.30 - 5.80 M/cumm [facility] MCV 101.7(H) 81.3 - 96.4 fL [facility] MCH 33.1 27.1 - 33.3 pg [facility] MCHC 32.6 32.3 - 35.7 g/dL [facility] RDW CV 15.1(H) 11.1 - 14.9 % [facility] RDW SD 56.5(H) 35.7 - 48.1 fL [facility] NRBC abs 0.00 0.00 - 0.01 K/cumm [facility] Blood 05/24/2025 2:24 PM FACILITIES OFFICER 05/24/2025 2:28 PM FACILITIES OFFICER us Barry Cobos DO LAB BLOOD ORDERABLES Final Res ult [facility] [address] [facility] Department [place] [address] * (ABNORMAL) Comprehensive metabolic panel (05/24/2025 2:24 PM FACILITIES OFFICER) Sodium 135 135 - 145 mmol/L Potassium, pl 4.3 3.3 - 4.9 mmol/L [facility] Chloride 104 97 - 110 mmol/L [facility] CO2 20(L) 22 - 32 mmol/L [facility] Anion gap 11 2 - 15 mmol/L [facility] BUN 21 6 - 25 mg/dL [facility] Creatinine 1.09 0.80 - 1.30 mg/dL [facility] Glucose 140 70 - 199 mg/dL [facility] Comment: Interpretive Data Fasting glucose >/= 126 mg/dl is diagnostic for diabetes. Fasting is defined as no caloric intake for at least 8 hours. Fasting glucose between 100 mg/dl to 125 mg/dl is diagnostic of prediabetes. In a patient with classic symptoms of hyperglycemia or hyperglycemic crisis, a random glucose >/= 200 mg/dl is diagnostic for diabetes. In the absence of unequivocal hyperglycemia, results should be confirmed by repeat testing. The classification and Diagnosis of Diabetes Diabetes Care 2021; 46: S19-S40. Current interpretive data was last revised 2022. Calcium 8.4(L) 8.5 - 10.3 mg/dL [facility] Bilirubin, total 0.6 0.1 - 1.2 mg/dL [facility] Protein, pl 6.7 6.5 - 8.5 g/dL [facility] Albumin 2.5(L) 3.5 - 5.0 g/dL [facility] Alk phos 99 40 - 130 Units/L [facility] ALT 12 7 - 55 Units/L [facility] AST 31 10 - 50 Units/L [facility] Blood 05/24/2025 2:24 PM FACILITIES OFFICER 05/24/2025 2:28 PM FACILITIES OFFICER us Barry Cobos DO LAB BLOOD ORDERABLES Final Res ult [facility] [place] [address] * US Guided Paracentesis (05/03/2025 12:43 PM FACILITIES OFFICER) Anatomical Region Laterality Modality Abdomen N/A Ultrasound, Comp uted Radiography 05/03/2025 1:01 PM FACILITIES OFFICER Impressions 05/03/2025 1:01 PM FACILITIES OFFICER Successful sonographic guided paracentesis. Electronically signed by: Darryn Almaraz M.D. Narrative 05/03/2025 1:01 PM FACILITIES OFFICER Technique: Sonographic guided paracentesis. Indication: Ascites. Procedure: The alternatives to, the benefits of and the risks of the procedure were discussed with the patient and informed written consent was obtained. The patient was placed in a supine position and the skin was prepped and draped in the usual sterile fashion. Local anesthesia was achieved with 2 ml of 1% lidocaine. Under sonographic guidance, a 5 [place] Citizen catheter was inserted into the peritoneal cavity and 10 liters of peritoneal fluid were removed. The patient tolerated the procedure well. There were no immediate complications. Procedure Note Darryn Almaraz MD - 05/03/2025 Technique: Sonographic guided paracentesis. Indication: Ascites. Procedure: The alternatives to, the benefits of and the risks of the procedure were discussed with the patient and informed written consent was obtained. The patient was placed in a supine position and the skin was prepped and draped in the usual sterile fashion. Local anesthesia was achieved with 2 ml of 1% lidocaine. Under sonographic guidance, a 5 [place] catheter was inserted into the peritoneal cavity and 10 liters of peritoneal fluid were removed. The patient tolerated the procedure well. There were no immediate complications. IMPRESSION: Successful sonographic guided paracentesis. Electronically signed by: Darryn Almaraz M.D. Salo Barth MD IMG US PROCEDURES Final Result * aPTT (05/03/2025 10:59 AM FACILITIES OFFICER) aPTT 28 22 - 37 sec Comment: Interpretive data aPTT test has not been evaluated for monitoring heparin therapy. The anti-Xa is the preferred test. Current interpretive data was last revised on 2019. Blood 05/03/2025 10:5 9 AM FACILITIES OFFICER 05/03/2025 11:39 AM FACILITIES OFFICER Result [facility] Salo Barth MD LAB BLOOD ORDERABL ES Final Result [facility] [id number] [facility] Department [place] [address] * (ABNORMAL) Protime-INR (05/03/2025 10:59 AM FACILITIES OFFICER) PT 15.50(H) 12.00 - 14.60 sec INR 1.22(H) 0.90 - 1.20 [facility] Comment: Interpretive data Oral anticoagulant therapeutic ranges: Venous thromboembolism prophylaxis or treatment: 2.0-3.0 CARDIOLOGY Standard range: 2.0-3.0 High-intensity range: 2.5-3.5 Refer to indication-specific guidelines for appropriate target ranges for prosthetic heart valve replacement. Current interpretive data was last revised on 2019. Blood 05/03/2025 10:5 9 AM FACILITIES OFFICER 05/03/2025 11:39 AM FACILITIES OFFICER Salo Barth MD LAB BLOOD ORDERABL ES Final Result Performing Organization Address [facility] Co de Phone Number HILARY [address] [place] [address] * (ABNORMAL) CBC without differential (05/03/2025 10:59 AM FACILITIES OFFICER) Pathologist [facility] WBC 7.16 3.80 - 9.90 K/cumm Hgb 10.4(L) 13.0 - 17.5 g/dL [facility] Hct 31.2(L) 38.9 - 50.3 % [facility] Plt 158 150 - 400 K/cumm [facility] MPV 10.8 9.1 - 12.3 fL [facility] RBC 3.15(L) 4.30 - 5.80 M/cumm [facility] MCV 99.0(H) 81.3 - 96.4 fL [facility] MCH 33.0 27.1 - 33.3 pg [facility] MCHC 33.3 32.3 - 35.7 g/dL [facility] RDW CV 15.9(H) 11.1 - 14.9 % [facility] RDW SD 58.0(H) 35.7 - 48.1 fL [facility] NRBC abs 0.00 0.00 - 0.01 K/cumm [facility] Blood 05/03/2025 10:5 9 AM FACILITIES OFFICER 05/03/2025 11:38 AM FACILITIES OFFICER Salo Barth MD LAB BLOOD ORDERABL ES Final Result Performing Organization Address City/[facility]/ZIP Co de Phone Number HILARY [address] [place] [address] * US Guided Paracentesis (04/10/2025 3:19 PM CDT) Anatomical Region Laterality Modality Abdomen N/A Ultrasound, Comp uted Radiography 04/10/2025 3:24 PM CDT Impressions 04/10/2025 3:24 PM CDT Successful sonographic guided paracentesis. Electronically signed by: Darryn Almaraz M.D. Narrative 04/10/2025 3:24 PM CDT Technique: Sonographic guided paracentesis. Indication: Ascites. Procedure: The alternatives to, the benefits of and the risks of the procedure were discussed with the patient and informed written consent was obtained. The patient was placed in a supine position and the skin was prepped and draped in the usual sterile fashion. Local anesthesia was achieved with 2 ml of 1% lidocaine. Under sonographic guidance, a 5-[place] catheter was inserted into the peritoneal cavity and 10 liters of peritoneal fluid were removed. The patient tolerated the procedure well. There were no immediate complications. Procedure Note Darryn Almaraz MD - 04/10/2025 Technique: Sonographic guided paracentesis. Indication: Ascites. Procedure: The alternatives to, the benefits of and the risks of the procedure were discussed with the patient and informed written consent was obtained. The patient was placed in a supine position and the skin was prepped and draped in the usual sterile fashion. Local anesthesia was achieved with 2 ml of 1% lidocaine. Under sonographic guidance, a 5-[place] catheter was inserted into the peritoneal cavity and 10 liters of peritoneal fluid were removed. The patient tolerated the procedure well. There were no immediate complications. IMPRESSION: Successful sonographic guided paracentesis. Electronically signed by: Darryn Almaraz M.D. us Salo Barth MD [facility] US PROCEDURES Final Result * US Guided Paracentesis (03/15/2025 11:35 AM CDT) Anatomical Region Laterality Modality Abdomen N/A Ultrasound, Comp uted Radiography 03/15/2025 12:4 0 PM CDT Narrative 03/15/2025 12:41 PM CDT EXAM DESCRIPTION: US GUIDED PARACENTESIS HISTORY: ascites, CIRRHOSIS Ultrasound-guided paracentesis is requested. COMPARISON: Ultrasound-guided paracentesis 02/23/2025 TECHNIQUE/FINDINGS: Pertinent imaging studies were reviewed. Immediately prior to the procedure, the healthcare team performed the safety pause and verbally confirmed that the patient, the planned procedure, the site and side were accurate. Pre-procedure sonographic scanning demonstrated the largest pocket of ascites in the right lower quadrant. The skin was prepped and draped. Local anesthesia was used with 1% lidocaine, including subcutaneous and deeper tissues. Under ultrasound guidance, a 5-[place] 7 cm One Step Centesis catheter was used to drain 10 liters of serous fluid from the right lower quadrant. Needle placement was documented with sonographic images. The catheter was removed with a large amount of ascites remaining. Hemostasis was achieved. The area was dressed with a bandage. The patient tolerated the procedure well with no complication evident and was discharged in stable condition. Post procedure education was completed including pain management instructions. Estimated blood loss: <5 ml IMPRESSION: 1. Successful ultrasound-guided paracentesis. 10 liters of serous fluid was removed per limit. Large amount of ascites remains. Consider more frequent paracentesis. 2. The patient will proceed to the Infusion Center for albumin administration post-paracentesis. THIS IS AN ELECTRONICALLY VERIFIED FINAL REPORT 03/15/2025 12:41 PM - Electronically signed by Luis Felipe Torrez M.D. AM T: Report ID: [id number] Reading Location: [id number] Procedure Note Luis Felipe Torrez MD - 03/15/2025 EXAM DESCRIPTION: US GUIDED PARACENTESIS HISTORY: ascites, CIRRHOSIS Ultrasound-guided paracentesis is requested. COMPARISON: Ultrasound-guided paracentesis 02/23/2025 TECHNIQUE/FINDINGS: Pertinent imaging studies were reviewed. Immediately prior to the procedure, the healthcare team performed the safety pause and verbally confirmed that the patient, the planned procedure, the site andside were accurate. Pre-procedure sonographic scanning demonstrated the largest pocket ofascites in the right lower quadrant. The skin was prepped and draped. Local anesthesia was used with 1% lidocaine, including subcutaneous and deeper tissues. Under ultrasound guidance, a 5-[place] 7 cm One Step Centesis catheter was used to drain 10 liters of serous fluid from the right lower quadrant. Needle placement was documented with sonographic images. The catheter was removed with a large amount of ascites remaining. Hemostasiswas achieved. The area was dressed with a bandage. The patient tolerated the procedure well with no complication evident andwas discharged in stable condition. Post procedure education was completed including pain management instructions. Estimated blood loss: <5 ml IMPRESSION: 1. Successful ultrasound-guided paracentesis. 10 liters of serous fluid was removed per limit. Large amount of ascites remains. Consider more frequent paracentesis. 2. The patient will proceed to the Infusion Center for albuminadministration post-paracentesis. THIS IS AN ELECTRONICALLY VERIFIED FINAL REPORT 03/15/2025 12:41 PM - Electronically signed by Luis Felipe Torrez M.D. 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
[2025-06-06 18:46] VITALS: BP 108/57; PULSE 111; RESP 20; TEMP 36.6; O2SAT 91
[2025-06-06 22:11] VITALS: BP 102/69; PULSE 94; RESP 24; O2SAT 98
[2025-06-06 23:23] LABS: Hematocrit 34.7 % (42.0-52.0); Hemoglobin 11.4 g/dL (14.0-18.0); Immature Granulocyte Percent A 0.4 % (0-0.5); Lymphocytes Absolute Auto 0.43 K/mm3 (0.9-3.2); Mean Corpuscular HGB Conc 32.9 g/dl (32-36); Mean Corpuscular Hemoglobin 32.7 pg (26-34); Mean Corpuscular Volume 99.4 fl (80-100); Nucleated Red Blood Cells Absolute Auto 0.000 K/mm3 (0.0-0.012); Nucleated Red Blood Cells Perc 0.0 % (0.0-0.2); Platelet Count Result 198 k/mm3 (150-375); Red Blood Count 3.49 M/mm3 (4.6-6.20); White Blood Count 5.5 K/mm3 (4.5-10.0)
[2025-06-06 23:44] LABS: INR 1.4; Prothrombin Time 16.7 Seconds (11.1-14.7)
[2025-06-06 23:45] LABS: Anisocytosis 1+; Partial Thromboplastin Time 31.8 Seconds (22.3-36.8)
[2025-06-06 23:46] LABS: Acanthocytes Occasional; Ovalocytes Occasional; Schistocytes None Seen
[2025-06-06 23:49] LABS: Alanine Aminotransferase 28 U/L (6-50); Albumin Level 2.8 g/dL (3.5-5.1); Alkaline Phosphatase 107 U/L (38-126); Anion Gap 13 mmol/L (4-12); Aspartate Amino Transferase 43 U/L (17-59); Bilirubin,Total 1.5 mg/dL (0.2-1.3); Blood Urea Nitrogen 24 mg/dL (9-20); Calcium 8.6 mg/dL (8.4-10.2); Carbon Dioxide 14 mmol/L (22-30); Chloride 106 mmol/L (98-107); Estimated Glomerular Filt Rate 47; Glucose 99 mg/dL (65-110); Lipase 80 U/L (23-300); Potassium 3.9 mmol/L (3.4-5.0); Sodium 133 mmol/L (137-145); Total Protein 6.6 g/dL (6.3-8.2)
--- NOTE | 2025-06-07 01:30 | ED.GENADULT ---
HPI - General Adult General Chief complaint: Abdominal Pain Stated complaint: abdominal pain, PMH of cirrhosis, low bs Time Seen by Provider: 06/06/25 20:51 History of Present Illness HPI narrative: patient is a 85-year-old gentleman presents emergency department with chief complaint of abdominal distention abdominal discomfort and shortness of breath. Patient reports that he has history ascites and reports that he has large volume paracentesis is done usually at all [facility] but the patient states that he EMS transported him to our facility because he was too uncomfortable to ride the extra 10 minutes to wear his normal care is the patient does report that he has had paracentesis done at our facility before patient reports that he has had discomfort whenever he takes a deep breath. The patient had 14 L of fluid removed on the 24 of May at all [facility] Related Data Home Medications ?Medication ?Instructions ?Recorded ?Confirmed ?Last Taken ?Type aspirin 81 mg tablet,delayed 81 mg PO DAILY 04/30/22 05/24/25 Unknown History release (Adult Low Dose Aspirin) Allergies Allergy/AdvReac Type Severity Reaction Status Date / Time peanut AdvReac Gastrointestinal Verified 05/24/25 12:54 Upset Review of Systems Review of Systems: A 10 system review of systems was completed on the patient and is negative except for what is stated in the HPI. Nursing and ancillary documentation was reviewed. [facility] Past Medical History Medical History Cirrhosis due to hemochromatosis Type 2 diabetes mellitus without complications Essential (primary) hypertension Pure hypercholesterolemia, unspecified Atherosclerosis of aorta (12/2010) Surgical History Surgical History History of arthroscopy of both knees History of bilateral cataract extraction History of coronary artery stent placement History of cardiac catheterization History of total left knee replacement (2010) History of total right knee replacement (2011) Family History Family History Mother Bone cancer Cerebrovascular accident Heart disease Hypertension Sibling Heart disease Social History Social History Social History: Surrogate medical decision maker: Disha Banda, spouse. Code status: Full code. Smoking packs per day: 1 Smoking cigarettes per day: 20.0 Smoking status: Former smoker Tobacco type: cigarettes Smoking end date: 06/14/84 Alcohol intake: never Substance use: never Substance use type: does not use Lack of Transportation: No Lack of Food: Never True Current Housing: I Have Housing Concerned About Future Housing: No Difficulty Paying Gas/Electric Bills: No Difficulty Paying for Meds: No Currently Unemployed: No Education: High School Diploma/GED Difficulty w/ Childcare or Family Care: No Spiritual care concerns: No Exam Narrative: GENERAL: Well-appearing, well-nourished, and in no acute distress. HEAD: Normocephalic, atraumatic. EYES: PERRLA and EOMI. ENT: Nares clear, no rhinorrhea or epistaxis. Mucous membranes moist. NECK: Supple. CHEST: Clear to auscultation. No respiratory distress. HEART: Regular rate and rhythm. No murmur heard. Normal peripheral pulses. ABDOMEN: Soft, massively distended, mild tenderness to palpation, normal active bowel sounds. EXTREMITIES: Normal range of motion. No edema. SKIN: Warm, dry, no rash. NEURO: No focal deficits. Alert and oriented x3. PSYCH: Normal mood and affect. Course Vital Signs Vital signs: Vital Signs Temperature 36.6 C 06/06/25 18:46 Pulse Rate 111 H 06/06/25 18:46 Respiratory Rate 20 06/06/25 18:46 Blood Pressure 108/57 L 06/06/25 18:46 Pulse Oximetry 91 06/06/25 18:46 Oxygen Delivery Room Air 06/06/25 18:46 Temperature 36.6 C 06/06/25 18:46 Pulse Rate 90 06/07/25 02:18 Respiratory Rate 18 06/07/25 02:18 Blood Pressure 120/61 06/07/25 02:18 Pulse Oximetry 100 06/07/25 02:18 Oxygen Delivery Room Air 06/06/25 22:11 MDM Differential Diagnosis Differential Diagnosis: differential diagnosis includes symptomatic ascites, pneumonia, fluid overload CT scan showed large volume ascites chest x-ray showed possible pneumonia. Blood cultures were obtained patient started on Rocephin Zithromax. Currently we do not have Interventional Radiology capability and the case was discussed with [facility] through the [facility] transfer center the patient was accepted to [facility] Lab Data 06/06/25 22:30 06/06/25 22:30 Labs: Lab Results 06/06/25 06/06/25 Range/Units 18:32 22:30 WBC 5.5 (4.5-10.0) K/mm3 RBC 3.49 L (4.6-6.20) M/mm3 Hgb 11.4 L (14.0-18.0) g/dL Hct 34.7 L (42.0-52.0) % MCV 99.4 (80-100) fl MCH 32.7 (26-34) pg MCHC 32.9 (32-36) g/dl RDW 15.3 H (11.5-14.5) % Plt Count 198 (150-375) k/mm3 MPV 9.7 (7.4-10.4) fl Immature Gran % (Auto) 0.4 (0-0.5) % Neut % (Auto) 81.5 H (45.5-73.1) % Lymph % (Auto) 7.9 L (18.3-44.2) % Bennett % (Auto) 9.3 H (2.6-8.5) % Eos % (Auto) 0.2 (0-4.4) % Baso % (Auto) 0.7 (0.2-1.2) % Lymph # (Auto) 0.43 L (0.9-3.2) K/mm3 Bennett # (Auto) 0.5 (0.1-0.6) K/mm3 Eos # (Auto) 0.0 (0-0.3) K/mm3 Baso # (Auto) 0.0 (0.0-0.1) K/mm3 Abs Immat Gran (auto) 0.02 (0.00-0.031) K/mm3 Absolute Neuts (auto) 4.5 (1.3-6.7) K/mm3 Absolute Nucleated RBC 0.000 (0.0-0.012) K/mm3 Band Neutrophils % Not Reportable Nucleated RBC % 0.0 (0.0-0.2) % Platelet Estimate Adequate (Adequate) Anisocytosis 1+ Ovalocytes Occasional Acanthocytes (Spur) Occasional Schistocytes None seen PT 16.7 H (11.1-14.7) Seconds INR 1.4 APTT 31.8 (22.3-36.8) Seconds Sodium 133 L (137-145) mmol/L Potassium 3.9 (3.4-5.0) mmol/L Chloride 106 (98-107) mmol/L Carbon Dioxide 14 L (22-30) mmol/L Anion Gap 13 H (4-12) mmol/L BUN 24 H D (9-20) mg/dL Creatinine 1.44 H (0.7-1.3) mg/dL Estim Creat Clear Calc Not Reportable Estimated GFR 47 L (59 - ) Glucose 99 (65-110) mg/dL POC Capillary Glucose 104 (65-105) mg/dl Calcium 8.6 (8.4-10.2) mg/dL Total Bilirubin 1.5 H (0.2-1.3) mg/dL AST 43 (17-59) U/L ALT 28 (6-50) U/L Alkaline Phosphatase 107 (38-126) U/L Total Protein 6.6 (6.3-8.2) g/dL Albumin 2.8 L (3.5-5.1) g/dL Lipase 80 (23-300) U/L Imaging Data Radiologist's impression: ITS Impressions Chest X-Ray 06/06/25 21:16 Impression: 1: Left perihilar airspace disease, compatible with pneumonia. Discharge Plan Discharge Clinical Impression: Abdominal ascites, Pneumonia, Abdominal pain Patient Disposition: Acute Care Hospital Condition: Stable Instructions: Antibiotic Form Patient Language: Thai Prescriptions: No Action aspirin [Adult Low Dose Aspirin] 81 mg tablet,delayed release (DR/EC) 81 mg PO DAILY furosemide 40 mg tablet 40 mg PO QAM Qty: 30 5RF spironolactone 100 mg tablet 100 mg PO BID Qty: 60 5RF hydroxyzine HCl 25 mg tablet 25 mg PO TID Qty: 90 3RF Rx Instructions: For itching metoprolol tartrate 50 mg tablet 50 mg PO BID Qty: 180 0RF simvastatin 40 mg tablet See Rx Instructions .ROUTE .COMPLEX Qty: 90 3RF Dose Instruction: Take 1 tablet by mouth once daily Rx Instructions: Take 1 tablet by mouth once daily benazepril 20 mg tablet See Rx Instructions .ROUTE .COMPLEX Qty: 90 3RF Dose Instruction: Take 1 tablet by mouth once daily Rx Instructions: Take 1 tablet by mouth once daily hydrocodone-acetaminophen 5-325 mg tablet 1 tablet PO BID PRN (Reason: pain) Qty: 60 0RF Follow-up/Referrals: Salo Barth MD [Primary Care Provider, [facility]] Time of Disposition: 06:23
[2025-06-07] MEDS: ONDANSETRON INJ 4 MG/2 ML VIAL IV PUSH (02:16)
[2025-06-07] MEDS: MORPHINE SULFATE (*CRX) 4 MG/ML INJ 2 MG IV PUSH ×2 (02:16→09:58)
[2025-06-07 02:18] VITALS: BP 120/61; PULSE 90; RESP 18; O2SAT 100
[2025-06-07] MEDS: FAMOTIDINE 20 MG/2 ML VIAL IV PUSH (03:51)
--- NOTE | 2025-06-07 04:32 | PC.NURSE ---
MD Olea made aware pt refusing straight cath
[2025-06-07] MEDS: cefTRIAXone 1 GM in SODIUM CHLORIDE 0.9% IV 50 ML 100 ML IVPB (06:13)
[2025-06-07 06:57] VITALS: BP 100/81; PULSE 91; RESP 24; O2SAT 98
--- NOTE | 2025-06-07 06:59 | PC.NURSE ---
pt accepted to [facility] Room # 232; accepting MD Desai
[2025-06-07 07:10] VITALS: BP 119/67; PULSE 94; RESP 19; O2SAT 100
[2025-06-07] MEDS: AZITHROMYCIN IV 500 MG in SODIUM CHLORIDE 0.9% IV 250 ML IVPB (07:18)
[2025-06-07 08:28] VITALS: BP 112/52; PULSE 87; RESP 19; O2SAT 100
[2025-06-07 10:05] VITALS: BP 121/66; PULSE 93; RESP 18; O2SAT 100
[2025-06-07 10:30] VITALS: BP 122/67; PULSE 88; RESP 18; O2SAT 97
== END 2025-06-07 10:35 | disposition short-term general hospital (02) ==
PROVIDERS: Emergency Provider Emergency Medicine; PCP Family Medicine Adolescent Medicine
DX: R18.8 Other ascites (principal); J18.9 Pneumonia, unspecified organism; R10.9 Unspecified abdominal pain; I10 Essential (primary) hypertension; E11.9 Type 2 diabetes mellitus without complications; E78.00 Pure hypercholesterolemia, unspecified; Z96.653 Presence of artificial knee joint, bilateral; Z87.891 Personal history of nicotine dependence
CPT/HCPCS: 36415; 71045; 74177; 80053; 82948; 83690; 85025; 85610; 85730; 87040; 87147; 87186; 96365; 96367; 96375; 96376; 99285; J0456; J0696; J2270; J2405; J7050; Q9967